=== PATIENT | female | born 1985 | race Caucasian/White ===

== ENCOUNTER 2016-06-12 09:58 | Emergency (ER) | payer MEDICAID ==
[2016-06-12 09:58] VITALS: BMI 43.2
[2016-06-12 10:11] VITALS: RESP 20
[2016-06-12] MEDS ORDERED: Sodium Chloride 0.9% 1,000 ML IV ONE (10:40)
[2016-06-12 10:41] VITALS: O2SAT 95
[2016-06-12] MEDS: Albuterol-Ipratrop 3 mg / 0.5 (3 ml) UD IH SCH ×2 (10:50→11:00)
[2016-06-12] MEDS ORDERED: Sodium Chloride 0.9% 1,000 ML ONE (10:52)
[2016-06-12] MEDS ORDERED: Albuterol-Ipratrop 3 mg / 0.5 (3 ml) UD ONE (10:54)
--- NOTE | 2016-06-12 10:56 | RAD ---
HISTORY: SOB COMPARISON: Chest x-ray performed 02/06/16 TECHNIQUE: Chest PA and lateral FINDINGS: Examination limited by habitus and hypoinflation. LUNGS: Bibasilar opacities may reflect pneumonia or atelectasis. Probable trace pleural effusions bilaterally. No definite pneumothorax. Please note that chest x-ray has limited sensitivity for the detection of pulmonary masses. CARDIOVASCULAR: The cardiomediastinal silhouette appears within normal limits of size. OSSEOUS STRUCTURES: No acute osseous abnormality identified. VISUALIZED UPPER ABDOMEN: Unremarkable. OTHER FINDINGS: None. IMPRESSION: Bibasilar opacities may reflect pneumonia or atelectasis. Probable trace pleural effusions bilaterally.
[2016-06-12 11:07] LABS: BASO # 0.1 K/uL (0.0-0.2); BASO % 0.7 % (0.0-2.0); EOS # 0.3 K/uL (0.0-0.7); EOS % 2.2 % (0.0-4.0); HEMATOCRIT 38.2 % (34.0-47.0); LYMPH % 31.6 % (20.0-40.0); MEAN CELL VOLUME 89.5 fL (81.0-99.0); MEAN CORPUSCULAR HEMOGLOBIN 29.5 pg (27.0-31.0); MEAN CORPUSCULAR HGB CONC 32.9 g/dL (33.0-37.0); MEAN PLATELET VOLUME 8.3 fL (7.2-11.7); MONO # 0.7 K/uL (0.0-0.8); MONO % 5.2 % (0.0-10.0); RED CELL DISTRIBUTION WIDTH 13.8 % (11.5-14.5); WHITE BLOOD COUNT 12.6 K/uL (4.8-10.8)
[2016-06-12 11:09] LABS: RBC URINE 4 /hpf (0-3); URINE BACTERIA RARE (<OCC); URINE BILIRUBIN NEGATIVE (NEGATIVE); URINE BLOOD 1+ (NEGATIVE); URINE COLOR Yellow (YELLOW); URINE GLUCOSE (UA) NORMAL (Normal); URINE KETONE NEGATIVE (NEGATIVE); URINE LEUKOCYTE ESTERASE NEG Leu/uL (Negative); URINE PROTEIN NEGATIVE (NEGATIVE); WBC URINE 1 /hpf (0-5)
[2016-06-12 11:14] LABS: CHLORIDE 103 mmol/L (98-107)
[2016-06-12 11:15] LABS: POTASSIUM 3.3 mmol/L (3.6-5.2); SODIUM 138 mmol/L (132-148)
[2016-06-12 11:17] LABS: AST/SGOT 23 U/L (14-36); BILIRUBIN,TOTAL 0.7 mg/dL (0.2-1.3); CARBON DIOXIDE 26 mmol/L (22-30); GFR AFRICAN-AMERICAN > 60
[2016-06-12 11:18] LABS: ALB/GLOB RATIO 1.1 (1.0-2.1); ALKALINE PHOSPHATASE 86 U/L (38-126); ALT/SGPT 32 U/L (9-52); BLOOD UREA NITROGEN 14 mg/dL (7-17); GLUCOSE,RANDOM 79 mg/dL (65-105); TOTAL PROTEIN 7.2 g/dL (6.3-8.3)
--- NOTE | 2016-06-12 11:19 | C.PDOC ---
History Of Present Illness 31 y/o female PMH COPD presents to the ED with complains of cough, midsternal chest pain, rib pain and SOB x3 days. Pt reports being sick for over a week, was seen by PMD given prednisone and unknown antibiotic which she completed. Patient continues to complain of cough. She also reports episode of post- tussive vomiting. Pt denies fever, nausea, dizziness or any other complaints. Time Seen by Provider: 06/12/16 10:35 Chief Complaint (Nursing): Chest Pain History Per: Patient History/Exam Limitations: no limitations Onset/Duration Of Symptoms: Days Current Symptoms Are (Timing): Still Present Severity: Moderate Modifying Factors: None Alleviating Factors: None Recent travel outside of the [place]: No Past Medical History Reviewed: Historical Data, Nursing Documentation, Vital Signs Vital Signs: Last Vital Signs Temp 98.3 F 06/12/16 12:29 Pulse 113 H 06/12/16 12:14 Resp 20 06/12/16 12:14 BP 122/73 06/12/16 12:14 Pulse Ox 95 06/12/16 12:14 - Medical History PMH: Anemia, Bronchitis, Diabetes, HTN, Pneumonia Surgical History: (x3) - [facility] Procedures EXCISION OF STOMACH, ENDO, DIAGN (02/06/16) FLUOROSCOPY OF LEFT HEART USING LOW OSMOLAR CONTRAST (02/06/16) FLUOROSCOPY OF MULT COR ART USING L OSM CONTRAST (02/06/16) MEASURE OF CARDIAC SAMPL & PRESSURE, L HEART, PERC APPROACH (02/06/16) Family History: States: Unknown Family Hx - Social History Hx Tobacco Use: Yes Hx Alcohol Use: Yes (SOCIALLY) Hx Substance Use: No - Immunization History Hx Tetanus Toxoid Vaccination: Yes Hx Influenza Vaccination: Yes (Oct 2015) Hx Pneumococcal Vaccination: No Review Of Systems Except As Marked, All Systems Reviewed And Found Negative. Constitutional: Negative for: Fever Cardiovascular: Positive for: Chest Pain (midsternal), Other (rib pain). Negative for: Palpitations Respiratory: Positive for: Cough, Shortness of Breath. Negative for: Pleuritic Pain, Wheezing Gastrointestinal: Positive for: Vomiting. Negative for: Nausea, Diarrhea Musculoskeletal: Negative for: Back Pain Skin: Negative for: Rash Neurological: Negative for: Headache, Dizziness Physical Exam - Physical Exam Appears: Non-toxic, No Acute Distress, Other (obese) Skin: Warm, Dry, No Diaphoretic, No Pale, No Rash Head: Atraumatic, Normacephalic Eye(s): bilateral: Normal Inspection, EOMI Ear(s): Bilateral: Normal (no erythema) Nose: Normal, No Flaring Oral Mucosa: Moist Throat: Normal, No Erythema, No Exudate, No Drooling, No Mass Neck: Normal, Normal ROM, Supple Chest: Symmetrical, No Deformity, No Tenderness Cardiovascular: Rhythm Regular, No Murmur Respiratory: Decreased Breath Sounds (at bases), No Rales, No Rhonchi, Wheezing (expiratory) Gastrointestinal/Abdominal: Normal Exam, Soft, No Tenderness Extremity: Bilateral: Atraumatic, Normal Color And Temperature, Normal ROM Neurological/Psych: Oriented x3, Normal Speech Gait: Steady ED Course And Treatment - Laboratory Results Result Diagrams: 06/12/16 11:01 06/12/16 11:01 Lab Interpretation: No Acute Changes ECG: Interpreted By Me, Viewed By Me ECG Rhythm: Sinus Tachycardia ECG Interpretation: No Acute Changes Rate From EC (BPM) O2 Sat by Pulse Oximetry: 95 (room air) Pulse Ox Interpretation: Normal Medical Decision Making Medical Decision Making: Plan: * EKG, CXR * labs * UA * nebulizer treatment Re-assess: Upon reevaluation patient resting comfortably in no acute distress. Lung sounds have improved and patient reports feeling better. No longer SOB. She has no fever and vital signs stable. CXR and labs reviewed and discussed with patient. Recommend to finish prednisone and continue nebulizers at home. will prescribe tessalon. Disposition Counseled Patient/Family Regarding: Diagnosis, Need For Followup, Rx Given - Disposition Referrals: [facility] [Outside] [facility] [Outside] Disposition: HOME/ ROUTINE Disposition Time: 12:10 Condition: STABLE Additional Instructions: Follow up with your primary medical doctor or clinic in 2-5 days for further evaluation. Take cough medicine as needed. Continue with nebulizers. Return to the emergency department at any time if symptoms persist or worsen. Prescriptions: Benzonatate [Tessalon Perles] 100 mg PO TID #30 sgl Instructions: COPD (Chronic Obstructive Pulmonary Disease) (DC) - POA Present On Arrival: None - Clinical Impression Clinical Impression: Pleuritic pain, COPD (chronic obstructive pulmonary disease) - PA / [employer] AND WELLNESS DIRECTOR / Resident Statement / has reviewed & agrees with the documentation as recorded. - Scribe Statement The provider has reviewed the documentation as recorded by the Scribe Dat Garcia All medical record entries made by the Fabioibgay were at my direction and personally dictated by me. I have reviewed the chart and agree that the record accurately reflects my personal performance of the history, physical exam, medical decision making, and the department course for this patient. I have also personally directed, reviewed, and agree with the discharge instructions and disposition.
[2016-06-12 12:15] VITALS: BP 122/73; PULSE 113
[2016-06-12 12:29] VITALS: TEMP 98.3
--- NOTE | 2016-06-18 07:48 | CARD ---
APPROVED REPORT EKG Measurement Heart [id number] <Conclusion> Sinus tachycardia ST & T wave abnormality, consider inferior ischemia Abnormal ECG
== END 2016-06-12 12:41 | disposition home or self-care (01) ==
LOC: C.ER 09:58
DX: J44.9 Chronic obstructive pulmonary disease, unspecified (principal); R07.81 Pleurodynia
CPT/HCPCS: 71020; 80053; 81001; 82948; 83880; 84703; 85025; 93005; 94150; 94640; 96361; 96374; 99285; J2930; J7040

== ENCOUNTER 2017-05-29 09:14 | Inpatient (IN) | payer MEDICAID ==
[2017-05-29 09:14] VITALS: BMI 43.2
[2017-05-29] MEDS ORDERED: Sodium Chloride 0.9% 500 ML IV ONE ×2 (10:06→10:50)
--- NOTE | 2017-05-29 10:38 | RAD ---
HISTORY: SOB, COUGH COMPARISON: Chest x-ray 06/12/2016 TECHNIQUE: Chest PA and lateral FINDINGS: LUNGS: No focal consolidation is seen. Mild Bibasilar atelectasis. PLEURA: No pleural effusion is identified. CARDIOVASCULAR: Heart size is within normal limits. OSSEOUS STRUCTURES: No significant abnormalities. VISUALIZED UPPER ABDOMEN: Unremarkable. OTHER FINDINGS: None. IMPRESSION: Mild bibasilar atelectasis.
[2017-05-29 10:49] LABS: BASO # 0.1 K/uL (0.0-0.2); BASO % 0.8 % (0.0-2.0); EOS # 0.1 K/uL (0.0-0.7); EOS % 0.7 % (0.0-4.0); HEMOGLOBIN 13.5 g/dL (11.0-16.0); LYMPH # 2.1 K/uL (1.0-4.3); LYMPH % 23.2 % (20.0-40.0); MEAN CELL VOLUME 91.9 fL (81.0-99.0); MEAN CORPUSCULAR HEMOGLOBIN 31.2 pg (27.0-31.0); MONO # 0.5 K/uL (0.0-0.8); MONO % 5.7 % (0.0-10.0); NEUT # 6.3 K/uL (1.8-7.0); NEUT % 69.6 % (50.0-75.0); RBC 4.34 Mil/uL (3.80-5.20); RED CELL DISTRIBUTION WIDTH 13.8 % (11.5-14.5)
--- NOTE | 2017-05-29 11:03 | C.PDOC ---
History Of Present Illness 32 y/o female presents to the ER complaining of persistent nausea and vomiting which has been present for the past 1 month. Patient states that she also has decreased PO intake. She also complains of persistent productive cough which has been present for the past 2 months. She notes that she has used 2 different antibiotics, and is currently taking Bactrim given to her by her PMD. Patient has h/o cryptogenic organizing pneumonia on 2L O2. She admits to having SOB. Patient deneis fever/chills, chest pain, diarrhea, dysuria/hematuria. Time Seen by Provider: 05/29/17 09:39 Chief Complaint (Nursing): Chest Pain History Per: Patient History/Exam Limitations: no limitations Onset/Duration Of Symptoms: Days Current Symptoms Are (Timing): Still Present Severity: Moderate Past Medical History Reviewed: Historical Data, Nursing Documentation, Vital Signs Vital Signs: Last Vital Signs Temp 98.1 F 06/03/17 08:00 Pulse 101 H 06/03/17 08:00 Resp 20 06/03/17 08:00 BP 107/71 06/03/17 08:00 Pulse Ox 92 L 06/05/17 18:35 - Medical History PMH: Anemia, Bronchitis, Diabetes, HTN, Pneumonia Surgical History: No Surg Hx, (x3) - [facility] Procedures EXCISION OF STOMACH, ENDO, DIAGN (02/06/16) FLUOROSCOPY OF LEFT HEART USING LOW OSMOLAR CONTRAST (02/06/16) FLUOROSCOPY OF MULT COR ART USING L OSM CONTRAST (02/06/16) MEASURE OF CARDIAC SAMPL & PRESSURE, L HEART, PERC APPROACH (02/06/16) Family History: States: No Known Family Hx - Social History Hx Tobacco Use: Yes Hx Alcohol Use: Yes (SOCIALLY) Hx Substance Use: No - Immunization History Hx Tetanus Toxoid Vaccination: Yes Hx Influenza Vaccination: Yes (Oct 2015) Hx Pneumococcal Vaccination: No Review Of Systems Except As Marked, All Systems Reviewed And Found Negative. Constitutional: Negative for: Fever, Chills Cardiovascular: Negative for: Chest Pain Respiratory: Positive for: Cough, Shortness of Breath Gastrointestinal: Positive for: Nausea, Vomiting. Negative for: Abdominal Pain , Diarrhea Genitourinary: Negative for: Dysuria Skin: Negative for: Rash Physical Exam - Physical Exam Appears: Well, Non-toxic, Other (mildly uncomfortable, speaking in full sentences) Skin: Normal Color, Warm, Dry, No Rash Head: Normacephalic Eye(s): bilateral: Normal Inspection Nose: Other (nasal cannula in bilateral nares) Oral Mucosa: Moist Neck: Supple Chest: Symmetrical Cardiovascular: Rhythm Regular (mildly tachycardic ) Respiratory: Normal Breath Sounds, No Rales, No Rhonchi, No Wheezing Gastrointestinal/Abdominal: Bowel Sounds, Soft, Tenderness (mild epigastric tenderness to palpation ), No Guarding, No Rebound, Other ((-)Peres's, ( -) McBurney's) Back: Normal Inspection, No CVA Tenderness Neurological/Psych: Oriented x3 ED Course And Treatment - Laboratory Results Result Diagrams: 06/03/17 10:53 06/03/17 10:53 O2 Sat by Pulse Oximetry: 92 (RA) Pulse Ox Interpretation: Abnormal - Other Rad CXR X-Ray: Viewed By Me, Read By Radiologist Interpretation: HISTORY: SOB, COUGH. COMPARISON: Chest x-ray 06/12/2016. TECHNIQUE: Chest PA and lateral. FINDINGS: LUNGS: No focal consolidation is seen. Mild Bibasilar atelectasis. PLEURA: No pleural effusion is identified. CARDIOVASCULAR: Heart size is within normal limits. OSSEOUS STRUCTURES: No significant abnormalities. VISUALIZED UPPER ABDOMEN: Unremarkable. OTHER FINDINGS: None. IMPRESSION: Mild bibasilar atelectasis. Progress Note: Blood work, UA, and CXR ordered and reviewed. Patient given IV NS bolus, O2 by NC, IV pepcid, IV zofran, IV morphine. 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 Disposition - Disposition Disposition: HOSPITALIZED Disposition Time: 13:29 Condition: STABLE - Clinical Impression Clinical Impression: Cryptogenic organizing pneumonia, Elevated CK, Rhabdomyolysis, Cough, Nausea & vomiting - Scribe Statement The provider has reviewed the documentation as recorded by the Alyssa Brownlee Provider Attestation: All medical record entries made by the Scribe were at my direction and personally dictated by me. I have reviewed the chart and agree that the record accurately reflects my personal performance of the history, physical exam, medical decision making, and the department course for this patient. I have also personally directed, reviewed, and agree with the discharge instructions and disposition. Decision To Admit - Pt Status Changed To: Hospital Disposition Of: Inpatient - Admit Certification Admit to Inpatient:: After my assessment, the patient will require hospitalization for at least two midnights. This is because of the severity of symptoms shown, intensity of services needed, and/or the medical risk in this patient being treated as an outpatient. - InPatient: Physician Admission Certification: I certify that this patient requires 2 or more midnights of care for the following reason:: see notes - . Bed Request Type: Telemetry Admitting Physician: Alondra Lyles Patient Diagnosis: Cryptogenic organizing pneumonia, Elevated CK, Rhabdomyolysis, Cough, Nausea & vomiting
[2017-05-29 11:09] LABS: HCG,QUALITATIVE URINE NEGATIVE (NEGATIVE)
[2017-05-29 11:20] LABS: ALB/GLOB RATIO 0.8 (1.0-2.1); ALT/SGPT 83 U/L (9-52); AST/SGOT 91 U/L (14-36); BLOOD UREA NITROGEN 9 mg/dL (7-17); CALCIUM 9.1 mg/dl (8.6-10.4); GFR AFRICAN-AMERICAN > 60; GFR NON-AFRICAN AMERICAN > 60; LIPASE 126 U/L (23-300)
[2017-05-29 11:25] LABS: CK-MB 23.3 ng/mL (0.0-3.38)
[2017-05-29 11:31] LABS: URINE CLARITY Hazy (Clear); URINE COLOR YELLOW (YELLOW)
[2017-05-29 11:32] LABS: URINE BILIRUBIN SMALL (NEGATIVE); URINE GLUCOSE (UA) NEGATIVE (Normal)
[2017-05-29 11:33] LABS: SQUAMOUS EPITHIAL 1 /hpf (0-5); URINE BLOOD LARGE (NEGATIVE); URINE LEUKOCYTE ESTERASE NEGATIVE Leu/uL (Negative); URINE PROTEIN 30 mg/dL (NEGATIVE); URINE UROBILINOGEN 0.2 mg/dL (0.2-1.0)
[2017-05-29 11:34] LABS: URINE BACTERIA RARE (<OCC)
[2017-05-29 15:08] VITALS: RESP 20
[2017-05-29 15:11] LABS: BARBITURATES, UR NEGATIVE (NEGATIVE); BENZODIAZEPINES, UR NEGATIVE (NEGATIVE); OPIATES, UR NEGATIVE (NEGATIVE); PHENCYCLIDINE, UR NEGATIVE (NEGATIVE)
[2017-05-29] MEDS ORDERED: Morphine 4 MG/ML VIAL ONE (17:28)
[2017-05-29] MEDS: MethylPREDNISolone 40 mg Vial IVP SCH ×2 (17:34→22:41)
[2017-05-29] MEDS ORDERED: Albuterol HFA 90 mcg/actuation (8 g) INH PRN (21:13)
[2017-05-29] MEDS: (Novolin R) Insulin Human Regular 100 units/ml vial SC SCH (22:42)
[2017-05-29] MEDS: Sodium Chloride 0.9% 1,000 ML IV SCH (22:47)
[2017-05-30] MEDS: Albuterol-Ipratrop 3 mg / 0.5 (3 ml) UD INH SCH ×4 (03:07→19:49)
[2017-05-30] MEDS: MethylPREDNISolone 40 mg Vial IVP SCH ×4 (05:29→21:48)
--- NOTE | 2017-05-30 07:21 | HP ---
CHIEF COMPLAINT: Chest pain, nausea, vomiting, and diarrhea. HISTORY OF PRESENT ILLNESS: Mrs. Caity Mast is a 32-year-old female came to the emergency room, complaining of persistent nausea and vomiting which has been present for past one month. The patient states that she has decreased p.o. intake. No appetite. The patient is also complaining of persistent productive cough which has been present for at least past two months. She noticed that she has been using two different antibiotics, and she is currently taking Bactrim provided by her PMD, and she has a history of COPD, and she is currently using 2 L of home oxygen. The patient admits to have shortness of breath. The patient denies any fever, chills, hematuria, or hematochezia. I saw the patient in the emergency room. Her boyfriend was sitting on the bedside also. PAST MEDICAL HISTORY: Anemia, bronchitis, asthma, hypertension, and pneumonia. SURGICAL HISTORY: x3. HABITS: Tobacco, yes. Alcohol, socially. Substance abuse, no. ALLERGIES: THE PATIENT IS ALLERGIC WITH SEAFOOD. HOME MEDICATIONS: Reviewed by me. REVIEW OF SYSTEMS: The patient seen and examined at the bedside in the ER. was sitting on the bedside also. Still nauseous and having abdominal pain, back pain. No fever at this moment. Still coughing, having shortness of breath. No hematuria or hematochezia. No swelling of the leg. PHYSICAL EXAMINATION: VITAL SIGNS: Temperature 97.6, pulse 111, respiratory rate 19, blood pressure 120/84, pulse oxymetry is 92. HEENT: Head: Normocephalic, atraumatic. Eyes: PERRLA. Extraocular muscles intact. Conjunctivae clear. Nose patent. NECK: Supple. No carotid bruits, JVD, or thyromegaly. CHEST: Bilaterally symmetrical. HEART: S1 and S2 positive. LUNGS: Clear to auscultation. ABDOMEN: Soft. Bowel sounds positive. No organomegaly. EXTREMITIES: No edema, no cyanosis. NEUROLOGIC: The patient is awake, alert, moving all 4 extremities. No focal deficits. LABORATORY DATA: White blood cell 9, hemoglobin 13.5, hematocrit 39.9, platelets 375. Sodium 139, potassium 4.1, BUN 9, creatinine 0.6, glucose 174. AST 93, ALT 83. Total creatine kinase 1175. CK is 23.3. Toxicology positive for cannabinoid. ASSESSMENT AND PLAN: Ms. Caity Mast is a 32-year-old lady with hyperglycemia, abnormal liver function test, rule out rhabdomyolysis. Urine is clear. Cannabinoid screening is positive. Chest x-ray done, mild bibasilar atelectasis. Obesity, history of anemia, bronchitis , diabetes mellitus, hypertension, and pneumonia. Rule out gastroenteritis. Got oxygen with 2 L nasal cannula. We will call pulmonary consult. Gastrointestinal and deep vein thrombosis prophylaxis. Repeat labs. We will follow. Alondra Lyles MD
--- NOTE | 2017-05-30 07:36 | CP.PCM.CON ---
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 In the last 3 weeks she again developed worsening productive cough and required two separate courses of antibiotics ( Azithromycin followed by Bactrim). As a result of coughing, she developed some lower rib/chest pain. In the last 1-2 weeks she has had episodes of epigastric, burning abdominal pain accompanied by nausea and vomiting. Symptoms have worsened to the point where she was not able to keep any food down. Admits to frequent Excedrin use for migraines. Also has muscle aches/weakness, intermittent shaking chills. No other OTC medications. Denies any weight loss, hematochezia, melena. 12 system ROS performed and negative except where stated above. 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) - NEUROLOGICAL Hx Neurological Disorder: No - HEENT Hx HEENT Problems: Yes Other/Comment: wear glasses for astigmatism - RENAL Hx Chronic Kidney Disease: No - ENDOCRINE/METABOLIC Hx Diabetes Mellitus Type 2: Yes - HEMATOLOGICAL/ONCOLOGICAL Hx Anemia: Yes Hx Hepatitis C: No Hx Human Immunodeficiency Virus (HIV): No - INTEGUMENTARY Hx Dermatological Problems: No - MUSCULOSKELETAL/RHEUMATOLOGICAL Hx Musculoskeletal Disorders: No Hx Falls: No - GASTROINTESTINAL Hx Gastrointestinal Disorders: Yes Hx Diarrhea: Yes - GENITOURINARY/GYNECOLOGICAL Hx Genitourinary Disorders: No Hx Sexually Transmitted Disorders: No - PSYCHIATRIC Hx Psychophysiologic Disorder: No Hx Substance Use: No - SURGICAL HISTORY Hx Surgeries: Yes Hx Cardiac Catheterization: Yes Hx Section: Yes (x3) Other/Comment: left ovary removed 2006. Lung biposy (03/2015) - ANESTHESIA Hx Anesthesia: Yes Hx Anesthesia Reactions: No Hx Malignant Hyperthermia: No Meds Allergies/Adverse Reactions: Allergies Allergy/AdvReac Type Severity Reaction Status Date / Time seasonal Allergy Uncoded 05/29/17 10:45 - Medications Medications: Current Medications Acetaminophen (Tylenol 325mg Tab) 650 mg PO TID PRN PRN Reason: Pain, moderate (4-7) Last Admin: 05/29/17 22:39 Dose: 650 mg Albuterol (Ventolin Hfa 90 Mcg/Actuation (8 G)) 2 puff INH RQ4 PRN PRN Reason: Shortness of Breath Albuterol/Ipratropium (Duoneb 3 Mg/0.5 Mg (3 Ml) Ud) 3 ml INH RQ6 [facility] Last Admin: 05/30/17 03:07 Dose: 3 ml Benzonatate (Tessalon Perles) 100 mg PO TID [facility] Sodium Chloride (Sodium Chloride 0.9%) 1,000 mls @ 100 mls/hr IV .Q10H [facility] Last Admin: 05/29/17 22:47 Dose: 100 mls/hr Insulin Human Regular (Novolin R) 0 unit SC ACHS [facility] PRN Reason: Protocol Last Admin: 05/29/17 22:42 Dose: Not Given Methylprednisolone (Solu-Medrol) 40 mg IVP Q6H [facility] Last Admin: 05/30/17 05:29 Dose: 40 mg Montelukast Sodium (Singulair) 10 mg PO HS [facility] Last Admin: 05/29/17 22:42 Dose: 10 mg Ondansetron HCl (Zofran Odt) 4 mg PO Q6H PRN PRN Reason: Nausea/Vomiting Pantoprazole Sodium (Protonix Ec Tab) 40 mg PO DAILY [facility] Fluticasone/Salmeterol (Advair Diskus 500/50) 1 puff INH RQ12 [facility] Physical Exam - Constitutional Appears: Non-toxic, No Acute Distress, Other (obese) - Eye Exam Eye Exam: EOMI, PERRL - ENT Exam ENT Exam: Mucous Membranes Moist - Respiratory Exam Respiratory Exam: Clear to Auscultation Bilateral. absent: Rales, Rhonchi, Wheezes - Cardiovascular Exam Cardiovascular Exam: RRR, +S1, +S2 - GI/Abdominal Exam GI & Abdominal Exam: Normal Bowel Sounds, Soft, Tenderness (epigastric). absent : Distended, Firm, Guarding, Organomegaly, Rigid - Extremities Exam Extremities exam: Positive for: normal inspection, pedal edema (1+ B/L) - Neurological Exam Neurological exam: Alert, Oriented x3 - Psychiatric Exam Psychiatric exam: Normal Affect, Normal Mood - Skin Skin Exam: Dry, Warm Results - Vital Signs Recent Vital Signs: Last Vital Signs Temp 97.8 F 05/30/17 00:00 Pulse 74 05/30/17 00:00 Resp 20 05/30/17 00:00 BP 107/69 05/30/17 00:00 Pulse Ox 98 05/30/17 00:00 - Labs Result Diagrams: 05/30/17 08:45 05/30/17 08:45 Labs: Laboratory Results - last 24 hr 05/29/17 05/29/17 05/29/17 10:41 10:41 10:57 WBC 9.0 RBC 4.34 Hgb 13.5 Hct 39.9 MCV 91.9 D MCH 31.2 H MCHC 34.0 RDW 13.8 Plt Count 375 MPV 8.0 Neut % (Auto) 69.6 Lymph % (Auto) 23.2 Dale % (Auto) 5.7 Eos % (Auto) 0.7 Baso % (Auto) 0.8 Neut # (Auto) 6.3 Lymph # (Auto) 2.1 Dale # (Auto) 0.5 Eos # (Auto) 0.1 Baso # (Auto) 0.1 Sodium 139 Potassium 4.1 Chloride 103 Carbon Dioxide 21 L Anion Gap 19 BUN 9 Creatinine 0.6 L Est GFR ( Amer) > 60 Est GFR (Non-Af Amer) > 60 POC Glucose (mg/dL) Random Glucose 92 Calcium 9.1 Total Bilirubin 0.8 AST 91 H ALT 83 H D Alkaline Phosphatase 110 Total Creatine Kinase 1175 H CK-MB (Mass) 23.3 H Troponin I < 0.0120 Total Protein 8.9 H Albumin 4.0 Globulin 4.9 H Albumin/Globulin Ratio 0.8 L Lipase 126 Urine Color Yellow Urine Clarity Hazy Urine pH 6.0 Ur Specific [place] 1.025 Urine Protein 30 Urine Glucose (UA) Negative Urine Ketones Negative Urine Blood Large Urine Nitrate Negative Urine Bilirubin Small Urine Urobilinogen 0.2 Ur Leukocyte Esterase Negative Urine WBC (Auto) 2 Urine RBC (Auto) 8 H Ur Squamous Epith Cells 1 Urine Bacteria Rare Urine HCG, Qual Negative Urine Opiates Screen Urine Methadone Screen Ur Barbiturates Screen Ur Phencyclidine Scrn Ur Amphetamines Screen U Benzodiazepines Scrn U Oth Cocaine Metabols U Cannabinoids Screen Alcohol, Quantitative 05/29/17 05/29/17 05/29/17 14:39 14:45 21:20 WBC RBC Hgb Hct MCV MCH MCHC RDW Plt Count MPV Neut % (Auto) Lymph % (Auto) Dale % (Auto) Eos % (Auto) Baso % (Auto) Neut # (Auto) Lymph # (Auto) Dale # (Auto) Eos # (Auto) Baso # (Auto) Sodium Potassium Chloride Carbon Dioxide Anion Gap BUN Creatinine Est GFR ( Amer) Est GFR (Non-Af Amer) POC Glucose (mg/dL) 179 H Random Glucose Calcium Total Bilirubin AST ALT Alkaline Phosphatase Total Creatine Kinase CK-MB (Mass) Troponin I Total Protein Albumin Globulin Albumin/Globulin Ratio Lipase Urine Color Urine Clarity Urine pH Ur Specific [place] Urine Protein Urine Glucose (UA) Urine Ketones Urine Blood Urine Nitrate Urine Bilirubin Urine Urobilinogen Ur Leukocyte Esterase Urine WBC (Auto) Urine RBC (Auto) Ur Squamous Epith Cells Urine Bacteria Urine HCG, Qual Urine Opiates Screen Negative Urine Methadone Screen Negative Ur Barbiturates Screen Negative Ur Phencyclidine Scrn Negative Ur Amphetamines Screen Negative U Benzodiazepines Scrn Negative U Oth Cocaine Metabols Negative U Cannabinoids Screen Positive H Alcohol, Quantitative < 10 Assessment & Plan - Assessment and Plan (Free Text) Assessment: Patient is a 32yo female with PMHx significant for DMT2, 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 organizing pneumonia (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), asthma who presented yesterday with complaint of chest and abdominal pain along with nausea/vomiting -Abdominal pain, nausea, vomiting - resolved -Elevated LFTs -DMT2 -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 -Elevated CK Plan: -Recommend initiation of PPI therapy with Protonix 40mg PO QAMAC given ongoing use of steroids and h/o heavy NSAID use -Avoid NSAIDs where possible -Check hepatitis serologies -Autoimmune work up - SARAH, AMA, ASMA, IgG level -U/S abdomen reviewed - no evidence for biliary disease - suspect hepatic steatosis; encourage diet/weight loss/exercise -Consider rheumatologic evaluation - R/O polymyositis given muscle weakness/ fatigue/elevated CK in absence of other causes -Diet as tolerated - Date & Time Date: 05/30/17 Time: 06:30 <Nicolas Diego - Last Filed: 05/30/17 13:09> Meds - Medications Medications: Current Medications Acetaminophen (Tylenol 325mg Tab) 650 mg PO TID PRN PRN Reason: Pain, moderate (4-7) Last Admin: 05/30/17 12:35 Dose: 650 mg Albuterol (Ventolin Hfa 90 Mcg/Actuation (8 G)) 2 puff INH RQ4 PRN PRN Reason: Shortness of Breath Albuterol/Ipratropium (Duoneb 3 Mg/0.5 Mg (3 Ml) Ud) 3 ml INH RQ6 [facility] Last Admin: 05/30/17 07:30 Dose: 3 ml Benzonatate (Tessalon Perles) 100 mg PO TID [facility] Last Admin: 05/30/17 09:59 Dose: 100 mg Heparin Sodium (Porcine) (Heparin) 5,000 units SC Q12 [facility] Last Admin: 05/30/17 10:22 Dose: Not Given Sodium Chloride (Sodium Chloride 0.9%) 1,000 mls @ 100 mls/hr IV .Q10H [facility] Last Admin: 05/30/17 08:45 Dose: 100 mls/hr Insulin Human Regular (Novolin R) 0 unit SC ACHS [facility] PRN Reason: Protocol Last Admin: 05/30/17 12:00 Dose: 1 unit Methylprednisolone (Solu-Medrol) 40 mg IVP Q6H [facility] Last Admin: 05/30/17 10:00 Dose: 40 mg Montelukast Sodium (Singulair) 10 mg PO HS [facility] Last Admin: 05/29/17 22:42 Dose: 10 mg Ondansetron HCl (Zofran Odt) 4 mg PO Q6H PRN PRN Reason: Nausea/Vomiting Pantoprazole Sodium (Protonix Ec Tab) 40 mg PO DAILY [facility] Last Admin: 05/30/17 09:57 Dose: 40 mg Fluticasone/Salmeterol (Advair Diskus 500/50) 1 puff INH RQ12 [facility] Last Admin: 05/30/17 10:33 Dose: Not Given Results - Vital Signs Recent Vital Signs: Last Vital Signs Temp 98.0 F 05/30/17 07:38 Pulse 98 H 05/30/17 07:38 Resp 20 05/30/17 07:38 BP 108/68 05/30/17 07:38 Pulse Ox 96 05/30/17 07:38 - Labs Result Diagrams: 05/30/17 08:45 05/30/17 11:41 Labs: Laboratory Results - last 24 hr 05/29/17 05/29/17 05/29/17 14:39 14:45 21:20 WBC RBC Hgb Hct MCV MCH MCHC RDW Plt Count MPV Sodium Potassium Chloride Carbon Dioxide Anion Gap BUN Creatinine Est GFR ( Amer) Est GFR (Non-Af Amer) POC Glucose (mg/dL) 179 H Random Glucose Hemoglobin A1c Calcium Iron TIBC % Saturation Total Bilirubin AST ALT Alkaline Phosphatase Total Creatine Kinase Total Protein Albumin Globulin Albumin/Globulin Ratio Triglycerides Cholesterol LDL Cholesterol Direct HDL Cholesterol Vitamin B12 Folate TSH 3rd Generation Urine Opiates Screen Negative Urine Methadone Screen Negative Ur Barbiturates Screen Negative Ur Phencyclidine Scrn Negative Ur Amphetamines Screen Negative U Benzodiazepines Scrn Negative U Oth Cocaine Metabols Negative U Cannabinoids Screen Positive H Alcohol, Quantitative < 10 IgG Hepatitis A IgM Ab Hep Bs Antigen Hep B Core IgM Ab Hepatitis C Antibody 05/30/17 05/30/17 05/30/17 06:59 08:45 08:45 WBC RBC Hgb Hct MCV MCH MCHC RDW Plt Count MPV Sodium Potassium Chloride Carbon Dioxide Anion Gap BUN Creatinine 0.5 L Est GFR ( Amer) > 60 Est GFR (Non-Af Amer) > 60 POC Glucose (mg/dL) 153 H Random Glucose Hemoglobin A1c Calcium Iron 47 TIBC 395 % Saturation 12 L Total Bilirubin AST ALT Alkaline Phosphatase Total Creatine Kinase 770 H Total Protein Albumin Globulin Albumin/Globulin Ratio Triglycerides 184 H Cholesterol 164 LDL Cholesterol Direct 107 HDL Cholesterol 25 L Vitamin B12 379 Folate 16.8 TSH 3rd Generation Urine Opiates Screen Urine Methadone Screen Ur Barbiturates Screen Ur Phencyclidine Scrn Ur Amphetamines Screen U Benzodiazepines Scrn U Oth Cocaine Metabols U Cannabinoids Screen Alcohol, Quantitative IgG Hepatitis A IgM Ab Hep Bs Antigen Hep B Core IgM Ab Hepatitis C Antibody 05/30/17 05/30/17 05/30/17 08:45 08:45 08:45 WBC 5.8 RBC 4.04 Hgb 12.9 Hct 37.5 MCV 92.7 MCH 31.9 H MCHC 34.4 RDW 13.4 Plt Count 350 MPV 8.2 Sodium 140 Potassium 4.2 Chloride 103 Carbon Dioxide 21 L Anion Gap 20 BUN 9 Creatinine 0.5 L Est GFR ( Amer) > 60 Est GFR (Non-Af Amer) > 60 POC Glucose (mg/dL) Random Glucose 161 H Hemoglobin A1c 6.4 Calcium 8.9 Iron TIBC % Saturation Total Bilirubin AST ALT Alkaline Phosphatase Total Creatine Kinase Total Protein Albumin Globulin Albumin/Globulin Ratio Triglycerides Cholesterol LDL Cholesterol Direct HDL Cholesterol Vitamin B12 Folate TSH 3rd Generation 0.35 L Urine Opiates Screen Urine Methadone Screen Ur Barbiturates Screen Ur Phencyclidine Scrn Ur Amphetamines Screen U Benzodiazepines Scrn U Oth Cocaine Metabols U Cannabinoids Screen Alcohol, Quantitative IgG Hepatitis A IgM Ab Hep Bs Antigen Hep B Core IgM Ab Hepatitis C Antibody 05/30/17 05/30/17 05/30/17 08:45 11:21 11:41 WBC RBC Hgb Hct MCV MCH MCHC RDW Plt Count MPV Sodium 141 Potassium 3.9 Chloride 103 Carbon Dioxide 17 L Anion Gap 24 H BUN 8 Creatinine 0.5 L Est GFR ( Amer) > 60 Est GFR (Non-Af Amer) > 60 POC Glucose (mg/dL) 159 H Random Glucose 168 H Hemoglobin A1c Calcium 9.2 Iron TIBC % Saturation Total Bilirubin 0.5 AST 71 H D ALT 81 H Alkaline Phosphatase 103 Total Creatine Kinase 829 H Total Protein 8.9 H Albumin 4.1 Globulin 4.8 H Albumin/Globulin Ratio 0.9 L Triglycerides Cholesterol LDL Cholesterol Direct HDL Cholesterol Vitamin B12 Folate TSH 3rd Generation Urine Opiates Screen Urine Methadone Screen Ur Barbiturates Screen Ur Phencyclidine Scrn Ur Amphetamines Screen U Benzodiazepines Scrn U Oth Cocaine Metabols U Cannabinoids Screen Alcohol, Quantitative IgG Hepatitis A IgM Ab Negative Hep Bs Antigen Negative Hep B Core IgM Ab Negative Hepatitis C Antibody Negative 05/30/17 11:51 WBC RBC Hgb Hct MCV MCH MCHC RDW Plt Count MPV Sodium Potassium Chloride Carbon Dioxide Anion Gap BUN Creatinine Est GFR ( Amer) Est GFR (Non-Af Amer) POC Glucose (mg/dL) Random Glucose Hemoglobin A1c Calcium Iron TIBC % Saturation Total Bilirubin AST ALT Alkaline Phosphatase Total Creatine Kinase Total Protein Albumin Globulin Albumin/Globulin Ratio Triglycerides Cholesterol LDL Cholesterol Direct HDL Cholesterol Vitamin B12 Folate TSH 3rd Generation Urine Opiates Screen Urine Methadone Screen Ur Barbiturates Screen Ur Phencyclidine Scrn Ur Amphetamines Screen U Benzodiazepines Scrn U Oth Cocaine Metabols U Cannabinoids Screen Alcohol, Quantitative IgG 1886.0 H Hepatitis A IgM Ab Hep Bs Antigen Hep B Core IgM Ab Hepatitis C Antibody Attending/Attestation - Attestation I have personally seen and examined this patient.: Yes I have fully participated in the care of the patient.: Yes I have reviewed all pertinent clinical information: Yes Notes (Text): 05/30/17 13:08 32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 US negative for gallstones, likely fatty infiltration. Send lft workup. Anti-emetics/ppi as needed. If persistent vomiting, then CT abdomen. Advance diet for now
[2017-05-30] MEDS: (Novolin R) Insulin Human Regular 100 units/ml vial SC SCH ×4 (08:00→22:51)
[2017-05-30] MEDS: Sodium Chloride 0.9% 1,000 ML IV SCH ×2 (08:45→17:43)
[2017-05-30 09:01] LABS: HEMOGLOBIN 12.9 g/dL (11.0-16.0); MEAN CELL VOLUME 92.7 fL (81.0-99.0); MEAN CORPUSCULAR HEMOGLOBIN 31.9 pg (27.0-31.0); MEAN CORPUSCULAR HGB CONC 34.4 g/dL (33.0-37.0); MEAN PLATELET VOLUME 8.2 fL (7.2-11.7); RBC 4.04 Mil/uL (3.80-5.20); RED CELL DISTRIBUTION WIDTH 13.4 % (11.5-14.5); WHITE BLOOD COUNT 5.8 K/uL (4.8-10.8)
[2017-05-30 09:16] LABS: BLOOD UREA NITROGEN 9 mg/dL (7-17); CALCIUM 8.9 mg/dl (8.6-10.4); GFR AFRICAN-AMERICAN > 60; GFR NON-AFRICAN AMERICAN > 60
[2017-05-30 09:28] LABS: IRON 47 ug/dL (37-170)
[2017-05-30 09:29] LABS: GFR AFRICAN-AMERICAN > 60; GFR NON-AFRICAN AMERICAN > 60; HDL CHOLESTEROL 25 mg/dL (30-70)
[2017-05-30 09:38] LABS: % IRON SATURATION 12 (20-55); TOTAL IRON BINDING CAPACITY 395 ug/dL (250-450)
--- NOTE | 2017-05-30 09:39 | US ---
Abdominal ultrasound History: Abnormal liver enzymes. Comparison: Ultrasound dated 02/08/2016 Technique: Real-time sonography was performed through the abdomen. Findings: Liver: 19.1 centimeters in length. Prominent. Increased echogenicity of the hepatic parenchymal cortex suggestive for fatty infiltration versus hepatic parenchymal disease. Clinical correlation. Gallbladder: No calculi or sludge. Normal wall thickness of 1.5 millimeters. Negative sonographic Peres's. Common bile duct measures 3 millimeters, within normal limits. Limited visualization of the pancreas. Spleen measures 10 centimeters in length, within normal limits. Visualized aorta and IVC are preserved. Right kidney: 11.1 x 4.8 x 5.2 centimeters. No calculi or hydronephrosis. Left Kidney: 10.9 x 5.6 x 5.6 centimeters. No calculi or hydronephrosis. Impression: Prominent liver measuring up to 19.1 centimeters in length with associated increased echogenicity of the hepatic parenchymal cortex suggestive for fatty infiltration versus hepatic parenchymal disease. Clinical correlation. Limited visualization of the pancreas.
[2017-05-30 09:40] LABS: LDL CHOLESTEROL 107 mg/dL (0-129)
[2017-05-30] MEDS: Pantoprazole 40 mg EC Tab PO SCH (09:57)
[2017-05-30 10:04] LABS: HEPATITIS B SURFACE AG Negative (NEGATIVE)
[2017-05-30 10:10] LABS: HEPATITIS A IGM NEGATIVE (NEGATIVE); HEPATITIS B CORE AB NEGATIVE (NEGATIVE)
[2017-05-30 10:22] LABS: HEPATITIS C ANTIBODY NEGATIVE (NEGATIVE)
[2017-05-30] MEDS: Fluticasone-Salmeterol 500-50mcg Diskus INH SCH ×2 (10:33→19:51)
[2017-05-30 10:56] LABS: FOLATE 16.8 ng/mL
--- NOTE | 2017-05-30 11:46 | CT ---
PROCEDURE: CT Chest without contrast HISTORY: sob, rabdomyelosis COMPARISON: 01/24/2016 TECHNIQUE: Contiguous axial images were obtained through the chest without intravenous contrast enhancement. Sagittal and coronal reconstructions were performed. Radiation dose (DLP): 875.08 mGy-cm. This CT exam was performed using one or more of the following dose reduction techniques: Automated exposure control, adjustment of the mA and/or kV according to patient size, and/or use of iterative reconstruction technique. FINDINGS: LUNGS: Extensive heterogeneous bilateral multifocal ground-glass opacity with patchy areas of confluency at the lung bases as well. Nonspecific. This may be infectious in etiology or may reflect pulmonary edema, chronic interstitial disease, ARDS, etc. MEDIASTINUM: Unremarkable thoracic aorta. No aneurysm. Normal sized heart. Main pulmonary artery unremarkable. No vascular congestion. Few mildly enlarged mediastinal nodes, nonspecific. PLEURA: No pleural fluid. No pneumothorax. BONES: No fracture. No destructive lesion. UPPER ABDOMEN: Grossly unremarkable. OTHER FINDINGS: None. IMPRESSION: Extensive heterogeneous bilateral ground-glass opacity common nonspecific. See above. Patchy areas of robinson confluency at the lung bases. .
[2017-05-30 12:18] LABS: ALB/GLOB RATIO 0.9 (1.0-2.1); ALBUMIN 4.1 g/dL (3.5-5.0); ALT/SGPT 81 U/L (9-52); AST/SGOT 71 U/L (14-36); BLOOD UREA NITROGEN 8 mg/dL (7-17); CALCIUM 9.2 mg/dl (8.6-10.4); GFR AFRICAN-AMERICAN > 60; GFR NON-AFRICAN AMERICAN > 60
--- NOTE | 2017-05-30 12:45 | CP.PCM.CON ---
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 She also reports having persistent productive cough for two months duration. Pt has taken two antibiotics in the past, and she was recently given Bactrim given by her PCP. At admission, patient complained of SOB. Pt denies Fever, chills, chest pain, hematuria, hematochezia Pt was seen and examined at bedside. Pt reports having been diagnosed with Cryptogenic Organziing Pneumonia a year ago. She has been on steroids. She admits having been exposed to a bird pet at home around a year ago, and currently has a different bird at home. She complains of productive coughing with clear/yellow sputum. Pt denies chest pain, palpitation, Nausea or vomiting. Pt denies shortness of breath. Pt has high CK and elevated LFT. Patient is positive for cannabinoid PMHx: Anemia, Bronchitis, COPD DM, HTN, Pneumonia PSH: x 3 All: Seasonal allergies FMHX: None SH: Tobacco use, social alcohol use, no illicit drug use Home Meds: Bactrim Assessment and Plan: 1. Chronic cough - 02 Sat 96% on 2L NC - LFT, CT scans done 1 year - Order CT scan - contact Dr Barney for previous reports for her diagnosis - Continue Solumedrol 40mg - Continue Advair, Singulair - duoneb, ventolin Tx 2. Possible Pulmonary HTN - CT scan - possible echo? 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) - NEUROLOGICAL Hx Neurological Disorder: No - HEENT Hx HEENT Problems: Yes Other/Comment: wear glasses for astigmatism - RENAL Hx Chronic Kidney Disease: No - ENDOCRINE/METABOLIC Hx Diabetes Mellitus Type 2: Yes - HEMATOLOGICAL/ONCOLOGICAL Hx Anemia: Yes Hx Hepatitis C: No Hx Human Immunodeficiency Virus (HIV): No - INTEGUMENTARY Hx Dermatological Problems: No - MUSCULOSKELETAL/RHEUMATOLOGICAL Hx Musculoskeletal Disorders: No Hx Falls: No - GASTROINTESTINAL Hx Gastrointestinal Disorders: Yes Hx Diarrhea: Yes - GENITOURINARY/GYNECOLOGICAL Hx Genitourinary Disorders: No Hx Sexually Transmitted Disorders: No - PSYCHIATRIC Hx Psychophysiologic Disorder: No Hx Substance Use: No - SURGICAL HISTORY Hx Surgeries: Yes Hx Cardiac Catheterization: Yes Hx Section: Yes (x3) Other/Comment: left ovary removed 2006. Lung biposy (03/2015) - ANESTHESIA Hx Anesthesia: Yes Hx Anesthesia Reactions: No Hx Malignant Hyperthermia: No Meds Allergies/Adverse Reactions: Allergies Allergy/AdvReac Type Severity Reaction Status Date / Time seasonal Allergy Uncoded 05/29/17 10:45 - Medications Medications: Current Medications Acetaminophen (Tylenol 325mg Tab) 650 mg PO TID PRN PRN Reason: Pain, moderate (4-7) Last Admin: 05/30/17 12:35 Dose: 650 mg Albuterol (Ventolin Hfa 90 Mcg/Actuation (8 G)) 2 puff INH RQ4 PRN PRN Reason: Shortness of Breath Albuterol/Ipratropium (Duoneb 3 Mg/0.5 Mg (3 Ml) Ud) 3 ml INH RQ6 [facility] Last Admin: 05/30/17 07:30 Dose: 3 ml Benzonatate (Tessalon Perles) 100 mg PO TID [facility] Last Admin: 05/30/17 09:59 Dose: 100 mg Heparin Sodium (Porcine) (Heparin) 5,000 units SC Q12 [facility] Last Admin: 05/30/17 10:22 Dose: Not Given Sodium Chloride (Sodium Chloride 0.9%) 1,000 mls @ 100 mls/hr IV .Q10H [facility] Last Admin: 05/30/17 08:45 Dose: 100 mls/hr Insulin Human Regular (Novolin R) 0 unit SC ACHS [facility] PRN Reason: Protocol Last Admin: 05/30/17 12:00 Dose: 1 unit Methylprednisolone (Solu-Medrol) 40 mg IVP Q6H [facility] Last Admin: 05/30/17 10:00 Dose: 40 mg Montelukast Sodium (Singulair) 10 mg PO HS [facility] Last Admin: 05/29/17 22:42 Dose: 10 mg Ondansetron HCl (Zofran Odt) 4 mg PO Q6H PRN PRN Reason: Nausea/Vomiting Pantoprazole Sodium (Protonix Ec Tab) 40 mg PO DAILY [facility] Last Admin: 05/30/17 09:57 Dose: 40 mg Fluticasone/Salmeterol (Advair Diskus 500/50) 1 puff INH RQ12 [facility] Last Admin: 05/30/17 10:33 Dose: Not Given Results - Vital Signs Recent Vital Signs: Last Vital Signs Temp 98.0 F 05/30/17 07:38 Pulse 98 H 05/30/17 07:38 Resp 20 05/30/17 07:38 BP 108/68 05/30/17 07:38 Pulse Ox 96 05/30/17 07:38 - Labs Result Diagrams: 05/30/17 08:45 05/30/17 11:41 Labs: Laboratory Results - last 24 hr 05/29/17 05/29/17 05/29/17 14:39 14:45 21:20 WBC RBC Hgb Hct MCV MCH MCHC RDW Plt Count MPV Sodium Potassium Chloride Carbon Dioxide Anion Gap BUN Creatinine Est GFR ( Amer) Est GFR (Non-Af Amer) POC Glucose (mg/dL) 179 H Random Glucose Hemoglobin A1c Calcium Iron TIBC % Saturation Total Bilirubin AST ALT Alkaline Phosphatase Total Creatine Kinase Total Protein Albumin Globulin Albumin/Globulin Ratio Triglycerides Cholesterol LDL Cholesterol Direct HDL Cholesterol Vitamin B12 Folate TSH 3rd Generation Urine Opiates Screen Negative Urine Methadone Screen Negative Ur Barbiturates Screen Negative Ur Phencyclidine Scrn Negative Ur Amphetamines Screen Negative U Benzodiazepines Scrn Negative U Oth Cocaine Metabols Negative U Cannabinoids Screen Positive H Alcohol, Quantitative < 10 IgG Hepatitis A IgM Ab Hep Bs Antigen Hep B Core IgM Ab Hepatitis C Antibody 05/30/17 05/30/17 05/30/17 06:59 08:45 08:45 WBC RBC Hgb Hct MCV MCH MCHC RDW Plt Count MPV Sodium Potassium Chloride Carbon Dioxide Anion Gap BUN Creatinine 0.5 L Est GFR ( Amer) > 60 Est GFR (Non-Af Amer) > 60 POC Glucose (mg/dL) 153 H Random Glucose Hemoglobin A1c Calcium Iron 47 TIBC 395 % Saturation 12 L Total Bilirubin AST ALT Alkaline Phosphatase Total Creatine Kinase 770 H Total Protein Albumin Globulin Albumin/Globulin Ratio Triglycerides 184 H Cholesterol 164 LDL Cholesterol Direct 107 HDL Cholesterol 25 L Vitamin B12 379 Folate 16.8 TSH 3rd Generation Urine Opiates Screen Urine Methadone Screen Ur Barbiturates Screen Ur Phencyclidine Scrn Ur Amphetamines Screen U Benzodiazepines Scrn U Oth Cocaine Metabols U Cannabinoids Screen Alcohol, Quantitative IgG Hepatitis A IgM Ab Hep Bs Antigen Hep B Core IgM Ab Hepatitis C Antibody 05/30/17 05/30/17 05/30/17 08:45 08:45 08:45 WBC 5.8 RBC 4.04 Hgb 12.9 Hct 37.5 MCV 92.7 MCH 31.9 H MCHC 34.4 RDW 13.4 Plt Count 350 MPV 8.2 Sodium 140 Potassium 4.2 Chloride 103 Carbon Dioxide 21 L Anion Gap 20 BUN 9 Creatinine 0.5 L Est GFR ( Amer) > 60 Est GFR (Non-Af Amer) > 60 POC Glucose (mg/dL) Random Glucose 161 H Hemoglobin A1c 6.4 Calcium 8.9 Iron TIBC % Saturation Total Bilirubin AST ALT Alkaline Phosphatase Total Creatine Kinase Total Protein Albumin Globulin Albumin/Globulin Ratio Triglycerides Cholesterol LDL Cholesterol Direct HDL Cholesterol Vitamin B12 Folate TSH 3rd Generation 0.35 L Urine Opiates Screen Urine Methadone Screen Ur Barbiturates Screen Ur Phencyclidine Scrn Ur Amphetamines Screen U Benzodiazepines Scrn U Oth Cocaine Metabols U Cannabinoids Screen Alcohol, Quantitative IgG Hepatitis A IgM Ab Hep Bs Antigen Hep B Core IgM Ab Hepatitis C Antibody 05/30/17 05/30/17 05/30/17 08:45 11:21 11:41 WBC RBC Hgb Hct MCV MCH MCHC RDW Plt Count MPV Sodium 141 Potassium 3.9 Chloride 103 Carbon Dioxide 17 L Anion Gap 24 H BUN 8 Creatinine 0.5 L Est GFR ( Amer) > 60 Est GFR (Non-Af Amer) > 60 POC Glucose (mg/dL) 159 H Random Glucose 168 H Hemoglobin A1c Calcium 9.2 Iron TIBC % Saturation Total Bilirubin 0.5 AST 71 H D ALT 81 H Alkaline Phosphatase 103 Total Creatine Kinase 829 H Total Protein 8.9 H Albumin 4.1 Globulin 4.8 H Albumin/Globulin Ratio 0.9 L Triglycerides Cholesterol LDL Cholesterol Direct HDL Cholesterol Vitamin B12 Folate TSH 3rd Generation Urine Opiates Screen Urine Methadone Screen Ur Barbiturates Screen Ur Phencyclidine Scrn Ur Amphetamines Screen U Benzodiazepines Scrn U Oth Cocaine Metabols U Cannabinoids Screen Alcohol, Quantitative IgG Hepatitis A IgM Ab Negative Hep Bs Antigen Negative Hep B Core IgM Ab Negative Hepatitis C Antibody Negative 05/30/17 11:51 WBC RBC Hgb Hct MCV MCH MCHC RDW Plt Count MPV Sodium Potassium Chloride Carbon Dioxide Anion Gap BUN Creatinine Est GFR ( Amer) Est GFR (Non-Af Amer) POC Glucose (mg/dL) Random Glucose Hemoglobin A1c Calcium Iron TIBC % Saturation Total Bilirubin AST ALT Alkaline Phosphatase Total Creatine Kinase Total Protein Albumin Globulin Albumin/Globulin Ratio Triglycerides Cholesterol LDL Cholesterol Direct HDL Cholesterol Vitamin B12 Folate TSH 3rd Generation Urine Opiates Screen Urine Methadone Screen Ur Barbiturates Screen Ur Phencyclidine Scrn Ur Amphetamines Screen U Benzodiazepines Scrn U Oth Cocaine Metabols U Cannabinoids Screen Alcohol, Quantitative IgG 1886.0 H Hepatitis A IgM Ab Hep Bs Antigen Hep B Core IgM Ab Hepatitis C Antibody
[2017-05-30] MEDS: Azithromycin 500 MG in Sodium Chloride 0.9% 250 ML IVPB SCH (18:21)
[2017-05-30] MEDS ORDERED: Apap-Butalbital-Caffeine 325-50-40mg Tab PO ONE (18:36)
[2017-05-31] MEDS: Albuterol-Ipratrop 3 mg / 0.5 (3 ml) UD INH SCH ×4 (02:13→19:59)
[2017-05-31] MEDS: Sodium Chloride 0.9% 1,000 ML IV SCH ×2 (03:11→14:45)
[2017-05-31] MEDS: MethylPREDNISolone 40 mg Vial IVP SCH ×3 (05:48→18:40)
[2017-05-31] MEDS: (Novolin R) Insulin Human Regular 100 units/ml vial SC SCH ×4 (08:02→22:33)
[2017-05-31] MEDS: Fluticasone-Salmeterol 500-50mcg Diskus INH SCH (08:18)
--- NOTE | 2017-05-31 08:54 | CP.PCM.PN ---
Subjective - Date & Time of Evaluation Date of Evaluation: 05/31/17 Time of Evaluation: 08:20 - Subjective Subjective: The patient seen and examined Still complaining of cough and dyspnea CAT scan of the chest noted Patient with history of cryptogenic pneumonitis status post lung biopsy and extensive workup at [facility] Continue IV steroids Continue azithromycin autoimmune workup Objective - Vital Signs/Intake and Output Vital Signs (last 24 hours): Temp Pulse Resp BP Pulse Ox 98 F 94 H 20 99/64 L 95 05/31/17 08:00 05/31/17 08:00 05/31/17 08:00 05/31/17 08:00 05/31/17 08:00 Intake and Output: 05/31/17 05/31/17 06:59 18:59 Intake Total 1989 Balance 1989 - Medications Medications: Current Medications Acetaminophen (Tylenol 325mg Tab) 650 mg PO TID PRN PRN Reason: Pain, moderate (4-7) Last Admin: 05/30/17 12:35 Dose: 650 mg Albuterol (Ventolin Hfa 90 Mcg/Actuation (8 G)) 2 puff INH RQ4 PRN PRN Reason: Shortness of Breath Albuterol/Ipratropium (Duoneb 3 Mg/0.5 Mg (3 Ml) Ud) 3 ml INH RQ6 [facility] Last Admin: 05/31/17 07:12 Dose: 3 ml Benzonatate (Tessalon Perles) 100 mg PO TID [facility] Last Admin: 05/30/17 17:41 Dose: 100 mg Heparin Sodium (Porcine) (Heparin) 5,000 units SC Q12 [facility] Last Admin: 05/30/17 21:48 Dose: 5,000 units Sodium Chloride (Sodium Chloride 0.9%) 1,000 mls @ 100 mls/hr IV .Q10H [facility] Last Admin: 05/31/17 03:11 Dose: 100 mls/hr Azithromycin 500 mg/ Sodium (Chloride) 250 mls @ 167 mls/hr IVPB Q24H [facility] PRN Reason: Protocol Last Admin: 05/30/17 18:21 Dose: 167 mls/hr Insulin Human Regular (Novolin R) 0 unit SC ACHS [facility] PRN Reason: Protocol Last Admin: 05/31/17 08:02 Dose: Not Given Methylprednisolone (Solu-Medrol) 40 mg IVP Q8H [facility] Last Admin: 05/31/17 05:48 Dose: 40 mg Montelukast Sodium (Singulair) 10 mg PO HS [facility] Last Admin: 05/30/17 21:48 Dose: 10 mg Ondansetron HCl (Zofran Odt) 4 mg PO Q6H PRN PRN Reason: Nausea/Vomiting Pantoprazole Sodium (Protonix Ec Tab) 40 mg PO DAILY [facility] Last Admin: 05/30/17 09:57 Dose: 40 mg Fluticasone/Salmeterol (Advair Diskus 500/50) 1 puff INH RQ12 [facility] Last Admin: 05/31/17 08:18 Dose: 1 puff - Labs Labs: 05/30/17 08:45 05/30/17 11:41
[2017-05-31 09:00] LABS: HEMOGLOBIN 11.7 g/dL (11.0-16.0); MEAN CELL VOLUME 92.5 fL (81.0-99.0); MEAN CORPUSCULAR HEMOGLOBIN 31.8 pg (27.0-31.0); MEAN CORPUSCULAR HGB CONC 34.3 g/dL (33.0-37.0); MEAN PLATELET VOLUME 8.6 fL (7.2-11.7); RBC 3.67 Mil/uL (3.80-5.20); RED CELL DISTRIBUTION WIDTH 13.7 % (11.5-14.5); WHITE BLOOD COUNT 6.8 K/uL (4.8-10.8)
[2017-05-31 09:33] LABS: ALB/GLOB RATIO 0.9 (1.0-2.1); ALBUMIN 3.8 g/dL (3.5-5.0); ALT/SGPT 60 U/L (9-52); AST/SGOT 39 U/L (14-36); BLOOD UREA NITROGEN 6 mg/dL (7-17); CALCIUM 8.8 mg/dl (8.6-10.4); GFR AFRICAN-AMERICAN > 60; GFR NON-AFRICAN AMERICAN > 60
[2017-05-31] MEDS: Pantoprazole 40 mg EC Tab PO SCH (10:06)
--- NOTE | 2017-05-31 13:56 | CP.PCM.CON ---
<Jesse Yost - Last Filed: 05/31/17 13:53> History of Present Illness - History of Present Illness History of Present Illness: PGY4 GI Follow Pt seen and examined bedside Abd pain improved Denies any BM tolerating diet ROS: 12 point ROS conducted, neg other than above Past Patient History - Infectious Disease Hx of Infectious Diseases: None - Past Medical History & Family History Past Medical History?: Yes - Past Social History Smoking Status: Former Smoker - CARDIAC Hx Cardiac Disorders: No - PULMONARY Hx Bronchitis: Yes Hx Pneumonia: Yes (HEAD OF ACQUISITIONS) - NEUROLOGICAL Hx Neurological Disorder: No - HEENT Hx HEENT Problems: Yes Other/Comment: wear glasses for astigmatism - RENAL Hx Chronic Kidney Disease: No - ENDOCRINE/METABOLIC Hx Diabetes Mellitus Type 2: Yes - HEMATOLOGICAL/ONCOLOGICAL Hx Anemia: Yes Hx Hepatitis C: No Hx Human Immunodeficiency Virus (HIV): No - INTEGUMENTARY Hx Dermatological Problems: No - MUSCULOSKELETAL/RHEUMATOLOGICAL Hx Musculoskeletal Disorders: No Hx Falls: No - GASTROINTESTINAL Hx Gastrointestinal Disorders: Yes Hx Diarrhea: Yes - GENITOURINARY/GYNECOLOGICAL Hx Genitourinary Disorders: No Hx Sexually Transmitted Disorders: No - PSYCHIATRIC Hx Psychophysiologic Disorder: No Hx Substance Use: No - SURGICAL HISTORY Hx Surgeries: Yes Hx Cardiac Catheterization: Yes Hx Section: Yes (x3) Other/Comment: left ovary removed 2006. Lung biposy (03/2015) - ANESTHESIA Hx Anesthesia: Yes Hx Anesthesia Reactions: No Hx Malignant Hyperthermia: No Meds Allergies/Adverse Reactions: Allergies Allergy/AdvReac Type Severity Reaction Status Date / Time seasonal Allergy Uncoded 05/29/17 10:45 - Medications Medications: Current Medications Acetaminophen (Tylenol 325mg Tab) 650 mg PO TID PRN PRN Reason: Pain, moderate (4-7) Last Admin: 05/30/17 12:35 Dose: 650 mg Albuterol (Ventolin Hfa 90 Mcg/Actuation (8 G)) 2 puff INH RQ4 PRN PRN Reason: Shortness of Breath Albuterol/Ipratropium (Duoneb 3 Mg/0.5 Mg (3 Ml) Ud) 3 ml INH RQ6 [facility] Last Admin: 05/31/17 13:48 Dose: 3 ml Benzonatate (Tessalon Perles) 100 mg PO TID [facility] Last Admin: 05/31/17 10:06 Dose: 100 mg Heparin Sodium (Porcine) (Heparin) 5,000 units SC Q12 [facility] Last Admin: 05/31/17 10:06 Dose: 5,000 units Sodium Chloride (Sodium Chloride 0.9%) 1,000 mls @ 100 mls/hr IV .Q10H [facility] Last Admin: 05/31/17 03:11 Dose: 100 mls/hr Azithromycin 500 mg/ Sodium (Chloride) 250 mls @ 167 mls/hr IVPB Q24H [facility] PRN Reason: Protocol Last Admin: 05/30/17 18:21 Dose: 167 mls/hr Ibuprofen (Motrin Tab) 400 mg PO Q6 PRN PRN Reason: Headache Insulin Human Regular (Novolin R) 0 unit SC ACHS [facility] PRN Reason: Protocol Last Admin: 05/31/17 11:54 Dose: Not Given Methylprednisolone (Solu-Medrol) 40 mg IVP Q8H [facility] Last Admin: 05/31/17 05:48 Dose: 40 mg Montelukast Sodium (Singulair) 10 mg PO HS [facility] Last Admin: 05/30/17 21:48 Dose: 10 mg Nortriptyline HCl (Pamelor) 10 mg PO [facility] Ondansetron HCl (Zofran Odt) 4 mg PO Q6H PRN PRN Reason: Nausea/Vomiting Pantoprazole Sodium (Protonix Ec Tab) 40 mg PO DAILY [facility] Last Admin: 05/31/17 10:06 Dose: 40 mg Physical Exam - Constitutional Appears: Well, No Acute Distress - Head Exam Head Exam: ATRAUMATIC, NORMOCEPHALIC - Eye Exam Eye Exam: Normal appearance. absent: Scleral icterus - ENT Exam ENT Exam: Mucous Membranes Moist, Normal Exam - Neck Exam Neck exam: Positive for: Normal Inspection - Respiratory Exam Respiratory Exam: Clear to Auscultation Bilateral, NORMAL BREATHING PATTERN. absent: Rales, Rhonchi, Wheezes, Respiratory Distress - Cardiovascular Exam Cardiovascular Exam: REGULAR RHYTHM, +S1, +S2 - GI/Abdominal Exam GI & Abdominal Exam: Normal Bowel Sounds, Soft. absent: Diminished Bowel Sounds , Distended, Firm, Guarding, Organomegaly, Rebound, Rigid - Extremities Exam Extremities exam: Negative for: joint swelling, pedal edema - Neurological Exam Neurological exam: Alert, Oriented x3 - Psychiatric Exam Psychiatric exam: Normal Affect, Normal Mood - Skin Skin Exam: Dry, Intact, Normal Color, Warm Results - Vital Signs Recent Vital Signs: Last Vital Signs Temp 98 F 05/31/17 08:00 Pulse 94 H 05/31/17 08:00 Resp 20 05/31/17 08:00 BP 99/64 L 05/31/17 08:00 Pulse Ox 95 05/31/17 08:00 - Labs Result Diagrams: 05/31/17 08:48 05/31/17 08:48 Labs: Laboratory Results - last 24 hr 05/30/17 05/30/17 05/31/17 16:20 21:34 07:20 WBC RBC Hgb Hct MCV MCH MCHC RDW Plt Count MPV Sodium Potassium Chloride Carbon Dioxide Anion Gap BUN Creatinine Est GFR ( Amer) Est GFR (Non-Af Amer) POC Glucose (mg/dL) 140 H 135 H 139 H Random Glucose Calcium Total Bilirubin AST ALT Alkaline Phosphatase Total Protein Albumin Globulin Albumin/Globulin Ratio 05/31/17 05/31/17 05/31/17 08:48 08:48 11:33 WBC 6.8 RBC 3.67 L Hgb 11.7 Hct 34.0 MCV 92.5 MCH 31.8 H MCHC 34.3 RDW 13.7 Plt Count 299 MPV 8.6 Sodium 140 Potassium 3.7 Chloride 104 Carbon Dioxide 20 L Anion Gap 21 H BUN 6 L Creatinine 0.5 L Est GFR ( Amer) > 60 Est GFR (Non-Af Amer) > 60 POC Glucose (mg/dL) 139 H Random Glucose 183 H Calcium 8.8 Total Bilirubin 0.5 AST 39 H D ALT 60 H D Alkaline Phosphatase 91 Total Protein 7.8 Albumin 3.8 Globulin 4.0 H Albumin/Globulin Ratio 0.9 L Assessment & Plan - Assessment and Plan (Free Text) Assessment: Patient is a 32yo female with PMHx significant for DMT2, cryptogenic organizing pneumonia (HEAD OF ACQUISITIONS), asthma who presented yesterday with complaint of chest and abdominal pain along with nausea/vomiting -Abdominal pain, nausea, vomiting - resolved -Elevated LFTs -DMT2 -HEAD OF ACQUISITIONS -Elevated CK Plan: -Recommend initiation of PPI therapy with Protonix 40mg PO QAMAC given ongoing use of steroids and h/o heavy NSAID use -Avoid NSAIDs where possible -hepatitis serologies negative -complete autoimmune work-up pending; IGG elevated; rest neg -U/S abdomen reviewed - no evidence for biliary disease - suspect hepatic steatosis; encourage diet/weight loss/exercise -Consider rheumatologic evaluation - R/O polymyositis given muscle weakness/ fatigue/elevated CK in absence of other causes -Diet as tolerated D/W Dr. Diego <Nicolas Diego - Last Filed: 05/31/17 16:43> Meds - Medications Medications: Current Medications Acetaminophen (Tylenol 325mg Tab) 650 mg PO TID PRN PRN Reason: Pain, moderate (4-7) Last Admin: 05/30/17 12:35 Dose: 650 mg Albuterol (Ventolin Hfa 90 Mcg/Actuation (8 G)) 2 puff INH RQ4 PRN PRN Reason: Shortness of Breath Albuterol/Ipratropium (Duoneb 3 Mg/0.5 Mg (3 Ml) Ud) 3 ml INH RQ6 [facility] Last Admin: 05/31/17 13:48 Dose: 3 ml Benzonatate (Tessalon Perles) 100 mg PO TID [facility] Last Admin: 05/31/17 14:44 Dose: 100 mg Heparin Sodium (Porcine) (Heparin) 5,000 units SC Q12 [facility] Last Admin: 05/31/17 10:06 Dose: 5,000 units Sodium Chloride (Sodium Chloride 0.9%) 1,000 mls @ 100 mls/hr IV .Q10H [facility] Last Admin: 05/31/17 14:45 Dose: Not Given Azithromycin 500 mg/ Sodium (Chloride) 250 mls @ 167 mls/hr IVPB Q24H [facility] PRN Reason: Protocol Last Admin: 05/30/17 18:21 Dose: 167 mls/hr Ibuprofen (Motrin Tab) 400 mg PO Q6 PRN PRN Reason: Headache Insulin Human Regular (Novolin R) 0 unit SC ACHS [facility] PRN Reason: Protocol Last Admin: 05/31/17 11:54 Dose: Not Given Methylprednisolone (Solu-Medrol) 40 mg IVP Q8H [facility] Last Admin: 05/31/17 14:44 Dose: 40 mg Montelukast Sodium (Singulair) 10 mg PO HS [facility] Last Admin: 05/30/17 21:48 Dose: 10 mg Nortriptyline HCl (Pamelor) 10 mg PO HS [facility] Ondansetron HCl (Zofran Odt) 4 mg PO Q6H PRN PRN Reason: Nausea/Vomiting Pantoprazole Sodium (Protonix Ec Tab) 40 mg PO DAILY [facility] Last Admin: 05/31/17 10:06 Dose: 40 mg Polyethylene Glycol (Miralax) 17 gm PO DAILY [facility] Results - Vital Signs Recent Vital Signs: Last Vital Signs Temp 97.8 F 05/31/17 15:00 Pulse 80 05/31/17 15:00 Resp 20 05/31/17 15:00 BP 111/68 05/31/17 15:00 Pulse Ox 95 05/31/17 15:00 - Labs Result Diagrams: 05/31/17 08:48 05/31/17 08:48 Labs: Laboratory Results - last 24 hr 05/30/17 05/30/17 05/31/17 14:01 21:34 07:20 WBC RBC Hgb Hct MCV MCH MCHC RDW Plt Count MPV Sodium Potassium Chloride Carbon Dioxide Anion Gap BUN Creatinine Est GFR ( Amer) Est GFR (Non-Af Amer) POC Glucose (mg/dL) 135 H 139 H Random Glucose Calcium Total Bilirubin AST ALT Alkaline Phosphatase Total Protein Albumin Globulin Albumin/Globulin Ratio SARAH Nuclear Membr Pat Negative 05/31/17 05/31/17 05/31/17 08:48 08:48 11:33 WBC 6.8 RBC 3.67 L Hgb 11.7 Hct 34.0 MCV 92.5 MCH 31.8 H MCHC 34.3 RDW 13.7 Plt Count 299 MPV 8.6 Sodium 140 Potassium 3.7 Chloride 104 Carbon Dioxide 20 L Anion Gap 21 H BUN 6 L Creatinine 0.5 L Est GFR ( Amer) > 60 Est GFR (Non-Af Amer) > 60 POC Glucose (mg/dL) 139 H Random Glucose 183 H Calcium 8.8 Total Bilirubin 0.5 AST 39 H D ALT 60 H D Alkaline Phosphatase 91 Total Protein 7.8 Albumin 3.8 Globulin 4.0 H Albumin/Globulin Ratio 0.9 L SARAH Nuclear Membr Pat Attending/Attestation - Attestation I have personally seen and examined this patient.: Yes I have fully participated in the care of the patient.: Yes I have reviewed all pertinent clinical information: Yes Notes (Text): 05/31/17 16:42 32 year old female with HEAD OF ACQUISITIONS admitted with cough, also with abdo pain, n/v. Symptoms improving. Continue ppi. Supportive measures. Advance diet as tolerated. Will sign off.
--- NOTE | 2017-05-31 14:17 | MRI ---
PROCEDURE: MRI BRAIN WITHOUT CONTRAST HISTORY: hreadache COMPARISON: None. TECHNIQUE: Multiplanar, multisequence MR images of the brain were obtained without intravenous contrast enhancement. FINDINGS: HEMORRHAGE: None DWI: No evidence of an acute or early subacute infarction. BRAIN PARENCHYMA: Intrinsic signal throughout the vasquez and white matter structures above below the tentorium includes appears within normal limits including the brainstem. There is no mass effect, parenchymal edema or loss of the corticomedullary differentiation. Midline brain anatomy appears within normal limits including the corpus callosum, brainstem and craniocervical junction. There is no suspicious extra-axial fluid collection identified. VENTRICLES: Unremarkable. No hydrocephalus. CRANIUM: Unremarkable. ORBITS: Grossly unremarkable. PARANASAL SINUSES/MASTOIDS: Clear VASCULAR SYSTEM: Skull base flow voids intact. OTHER FINDINGS: None. IMPRESSION: Unremarkable non contrast enhanced MRI of the brain.
[2017-05-31] MEDS: POLYETHYLENE GLYCOL 3350 17 GM/Dose PACKET PO SCH (16:45)
[2017-05-31] MEDS: Azithromycin 500 MG in Sodium Chloride 0.9% 250 ML IVPB SCH (17:46)
--- NOTE | 2017-05-31 21:45 | CON ---
DATE: REASON FOR CONSULTATION: Headaches. HISTORY OF PRESENT ILLNESS: The patient is a 32-year-old female who has been asked for evaluation of headaches. The patient said she has headaches all her life. She gets them on and off, but however for the last several months, she has been having it almost every day. She has been taking ibuprofen which some times helps, other times does not help her headache. Headaches are some times associated with nausea. She does get throbbing headache associated with photophobia. The patient is admitted to the hospital because of shortness of breath and chest pain. PAST MEDICAL HISTORY: Includes diabetes mellitus, COPD. HOME MEDICATIONS: Include prednisone, Glucophage, Protonix, Singulair, Levemir, Advair, Ventolin and albuterol. ALLERGIES: NO KNOWN DRUG ALLERGIES. SOCIAL HISTORY: She is an ex-smoker. Denies current smoking. Denies use of alcohol or illicit drugs. FAMILY HISTORY: Reviewed and noncontributory to the case. PHYSICAL EXAMINATION: GENERAL: The patient is a young pleasant female, lying in the bed, in no acute distress. VITAL SIGNS: Her blood pressure is 99/64, heart rate is 94 per minute, breathing at the rate of 16 per minute, temperature 98 degrees Fahrenheit. HEENT: Head, normocephalic and atraumatic. NECK: Supple. There are no carotid bruits. LUNGS: Clear. CARDIOVASCULAR SYSTEM: S1 and S2 audible. No murmurs. ABDOMEN: Soft and nontender with bowel sounds present. NEUROLOGY: Mental status: The patient is awake; alert; oriented to time, place, person. Her speech is fluent. Naming and repetition normal. Memory and cognition are intact. Cranial nerve examination: Pupils are 4 mm bilaterally, reactive to light. Visual perez are full. Extraocular movements are intact. There is no facial asymmetry. Palate is upgoing bilaterally and tongue is midline. Motor examination: Tone is normal. Power is 5/5 bilaterally in all extremities. Reflexes are 1+ and symmetrical. Plantars are downgoing bilaterally. Cerebellar Examination: [id number] shows no dysmetria. Gait is deferred at the moment. There is no meningeal sign. LABORATORY DATA: Labs reviewed, shows WBC of 6.8, hemoglobin 11.7, hematocrit 34.0, and platelets of 299. Sodium is 140, potassium 3.7, chloride of 104, carbon dioxide content of 20, BUN of 6, creatinine of 0.5 and glucose of 183. IMPRESSION: Chronic migraine headaches. RECOMMENDATIONS: 1. The patient is to have MRI of the brain without contrast. 2. The patient to be started on nortriptyline 10 mg at bedtime for headache prophylaxis. The dose needs to be increased as outpatient if she tolerates the medication. 3. The patient may have ibuprofen on an as needed basis to relieve her headaches. 4. Discontinue supportive care and other treatment. Thank you for the opportunity to participate in the care of this patient. Patrick Bhatia MD
--- NOTE | 2017-05-31 22:15 | PN ---
DATE: SUBJECTIVE: The patient was seen and examined on the bedside. Looking comfortable. No nausea, vomiting or diarrhea. No hematuria or hematochezia. No swelling of the leg. No chest pain. No palpitations, but still having coughing and shortness of breath. Getting ready to go for MRI. Abdominal pain improved. Denies any bowel movement. Tolerating diet. REVIEW OF SYSTEMS: A 12-point review of systems conducted and negative other than the above. PHYSICAL EXAMINATION: VITAL SIGNS: Temperature 97.8, pulse 80, blood pressure 111/60, respiratory rate 20. HEENT: Head, normocephalic, atraumatic. Eyes, PERRLA. Extraocular muscles intact. Conjunctivae clear. Nose patent. Mucous membranes are moist. NECK: Supple. No carotid bruits. No JVD or thyromegaly. CHEST: Bilaterally symmetrical. HEART: S1, S2 positive. LUNGS: Clear to auscultation. ABDOMEN: Soft. Bowel sounds positive. No organomegaly. EXTREMITIES: No edema, no cyanosis. NEUROLOGIC: The patient is awake, alert. Moving all 4 extremities. No focal deficits. MEDICATIONS: Azithromycin, albuterol, heparin, MiraLax, ibuprofen, NovoLog, nortriptyline, Protonix, Singulair, NS, Solu-Medrol, benzoate. LABORATORY DATA: White blood cell 6.8, hemoglobin 11.7, hematocrit 34, platelets 299, sodium 140, potassium 3.7, BUN 6, creatinine 0.5, glucose 106, 139. AST 39, ALT 60. ASSESSMENT AND PLAN: Ms. Caity Mast is a 32 years old lady with renal insufficiency, diabetes mellitus, abnormal liver function test, cannabinoid positive, SARAH nuclear membrane pattern negative. Went for brain MRI, unremarkable noncontrast enhanced MRI of the brain. Went for CAT scan of the chest, extensive heterogenous bilateral ground glass opacity, nonspecific. Seen by Dr. Nicolas Diego, [employer]. Has diabetes mellitus type 2, chronic obstructive pulmonary disease, asthma. Came in with chest pain, abdominal pain with nausea and vomiting. Abdominal pain, nausea and vomiting resolved. Still has elevated liver function test. Elevated CK. Recommended initiation of the PPI with Protonix 40 mg p.o. every daily. We will decrease steroid. The patient has a history of heavy nonsteroidal antiinflammatory drug use. Try to avoid nonsteroidal antiinflammatory drug as per GI. Hepatitis serology negative. Ultrasound noted. Seen by Dr. Khoa Verdugo, [facility]. We will taper down steroid. Repeat labs. GI and DVT prophylaxis. We will follow up. Alondra Lyles MD
[2017-06-01] MEDS: MethylPREDNISolone 40 mg Vial IVP SCH ×3 (01:37→17:28)
[2017-06-01] MEDS: Albuterol-Ipratrop 3 mg / 0.5 (3 ml) UD INH SCH ×4 (01:54→21:06)
[2017-06-01] MEDS: Sodium Chloride 0.9% 1,000 ML IV SCH ×4 (06:11→20:40)
[2017-06-01] MEDS: (Novolin R) Insulin Human Regular 100 units/ml vial SC SCH ×4 (08:30→21:55)
[2017-06-01] MEDS: POLYETHYLENE GLYCOL 3350 17 GM/Dose PACKET PO SCH (10:15)
[2017-06-01] MEDS: Pantoprazole 40 mg EC Tab PO SCH (10:15)
[2017-06-01] MEDS: Azithromycin 500 MG in Sodium Chloride 0.9% 250 ML IVPB SCH (17:28)
--- NOTE | 2017-06-01 19:05 | CP.PCM.PN ---
Subjective - Date & Time of Evaluation Date of Evaluation: 06/01/17 Time of Evaluation: 16:30 - Subjective Subjective: the patient seen and examined Breathing better but still complaining of cough productive off clear phlegm No further hemoptysis Continue antibiotics and IV steroids Continue nebulizer treatment Objective - Vital Signs/Intake and Output Vital Signs (last 24 hours): Temp Pulse Resp BP Pulse Ox 97.8 F 89 20 112/76 97 06/01/17 16:00 06/01/17 16:00 06/01/17 16:00 06/01/17 16:00 06/01/17 16:00 Intake and Output: 06/01/17 06/02/17 18:59 06:59 Intake Total 2160 Balance 2160 - Medications Medications: Current Medications Acetaminophen (Tylenol 325mg Tab) 650 mg PO TID PRN PRN Reason: Pain, moderate (4-7) Last Admin: 06/01/17 16:26 Dose: 650 mg Albuterol (Ventolin Hfa 90 Mcg/Actuation (8 G)) 2 puff INH RQ4 PRN PRN Reason: Shortness of Breath Albuterol/Ipratropium (Duoneb 3 Mg/0.5 Mg (3 Ml) Ud) 3 ml INH RQ6 [facility] Last Admin: 06/01/17 13:45 Dose: 3 ml Benzonatate (Tessalon Perles) 100 mg PO TID [facility] Last Admin: 06/01/17 17:28 Dose: 100 mg Heparin Sodium (Porcine) (Heparin) 5,000 units SC Q12 [facility] Last Admin: 06/01/17 10:16 Dose: 5,000 units Sodium Chloride (Sodium Chloride 0.9%) 1,000 mls @ 100 mls/hr IV .Q10H [facility] Last Admin: 06/01/17 10:17 Dose: Not Given Azithromycin 500 mg/ Sodium (Chloride) 250 mls @ 167 mls/hr IVPB Q24H [facility] PRN Reason: Protocol Last Admin: 06/01/17 17:28 Dose: 167 mls/hr Insulin Human Regular (Novolin R) 0 unit SC ACHS [facility] PRN Reason: Protocol Last Admin: 06/01/17 16:55 Dose: 1 unit Methylprednisolone (Solu-Medrol) 30 mg IVP Q8H [facility] Last Admin: 06/01/17 17:28 Dose: 30 mg Montelukast Sodium (Singulair) 10 mg PO HS [facility] Last Admin: 05/31/17 21:45 Dose: 10 mg Nortriptyline HCl (Pamelor) 10 mg PO HS [facility] Last Admin: 05/31/17 21:45 Dose: 10 mg Ondansetron HCl (Zofran Odt) 4 mg PO Q6H PRN PRN Reason: Nausea/Vomiting Pantoprazole Sodium (Protonix Ec Tab) 40 mg PO DAILY [facility] Last Admin: 06/01/17 10:15 Dose: 40 mg Polyethylene Glycol (Miralax) 17 gm PO DAILY [facility] Last Admin: 06/01/17 10:15 Dose: 17 gm - Labs Labs: 05/31/17 08:48 05/31/17 08:48
[2017-06-02] MEDS: Albuterol-Ipratrop 3 mg / 0.5 (3 ml) UD INH SCH ×4 (01:46→19:37)
[2017-06-02] MEDS: MethylPREDNISolone 40 mg Vial IVP SCH ×3 (02:43→17:05)
[2017-06-02] MEDS: (Novolin R) Insulin Human Regular 100 units/ml vial SC SCH ×4 (08:15→21:51)
[2017-06-02] MEDS: Pantoprazole 40 mg EC Tab PO SCH (10:29)
[2017-06-02] MEDS: POLYETHYLENE GLYCOL 3350 17 GM/Dose PACKET PO SCH (10:39)
--- NOTE | 2017-06-02 10:55 | PN ---
DATE: 05/30/2017 SUBJECTIVE: Patient is a 32-year-old female. Patient was seen and examined on the bedside. Still coughing. Still having shortness of breath, even is getting dyspneic when she is going to the bathroom. Getting steroid. According to the patient, she has exposure of bird pets at home around a year ago and currently has a different bird at home. Complaining of progressive cough with clear yellow phlegm. No palpitation, nausea, vomiting or diarrhea. No hematuria or hematochezia. No shortness of breath. The patient has elevated liver function tests. Positive cannabinoid. No headache. No dizziness. No chest pain. No palpitation. PHYSICAL EXAMINATION: VITAL SIGNS: Temperature 98, pulse 98, respiratory rate 20, blood pressure 105/68, pulse oximetry 96%. HEENT: Head, normocephalic and atraumatic. Eyes, PERRLA. Extraocular muscles intact. Conjunctivae clear. Nose patent. Mucous membrane moist. NECK: Supple. No carotid bruit, JVD or thyromegaly. CHEST: Bilaterally symmetrical. HEART: S1, S2 positive. LUNGS: Positive wheezing bilaterally. ABDOMEN: Soft. Bowel sounds present. No organomegaly. EXTREMITIES: No edema. No cyanosis. NEUROLOGIC: Patient is awake, alert. Follow simple commands. LABORATORY DATA: White blood cell 5.2, hemoglobin 12.9, hematocrit 37.5, platelets 250. Sodium 141, potassium 3.9, BUN 8, creatinine 0.5 , glucose 178. ASSESSMENT AND PLAN: a 32-year-old female with hyperglycemia; history of anemia; bronchitis; chronic obstructive pulmonary disease; diabetes mellitus; hypertension; pneumonia; came with chronic cough; I noted the CT scan; continue Solu-Medrol, continue Advair, Singulair, DuoNeb, Ventolin; possibly pulmonary hypertension; obesity; CAT scan of the chest done, abdominal ultrasound done, appreciated by me; seen by Dr. Nicolas Maradiaga, graduate assistant athletic trainer; cryptogenic organizing pneumonia; history of asthma; abdominal pain; nausea and vomiting resolved; elevated liver function tests, we will repeat that; elevated CK. Recommended initiation of proton pump inhibitor therapy with Protonix. Not using steroids. Avoid NSAID if possible , waiting for serology and autoimmune workup. Ultrasound of the abdomen reviewed. Consider rheumatologic evaluation, rule out polymyositis, joint and muscle weakness, fatigue, elevated CK and then in the absence of other issues. Diet as tolerated. Repeat labs. We will follow up. Alondra Lyles MD [facility]
--- NOTE | 2017-06-02 14:32 | PN ---
DATE: 06/01/2017 SUBJECTIVE: The patient was seen and examined at bedside on 06/01/2017 in [facility]. Feeling better, but still coughing, shortness of breath, especially dyspneic when going to the bathroom. No hemoptysis. No fever, no chills, and no hematuria or hematochezia. No headache, no dizziness. PHYSICAL EXAMINATION: VITAL SIGNS: Temperature 97.8, pulse 59, respiratory rate 20, blood pressure 112/76, pulse oximetry 97%. HEENT: Head: Normocephalic, atraumatic. Eyes: PERRLA. Extraocular muscles intact. Conjunctivae clear. Nose patent. Mucous membranes are moist. NECK: Supple. No carotid bruits. No JVD or thyromegaly. CHEST: Bilaterally symmetrical. HEART: S1, S2 positive. LUNGS: Clear to auscultation. ABDOMEN: Soft. Bowel sounds positive. No organomegaly. EXTREMITIES: No edema, no cyanosis. NEUROLOGIC: The patient is awake, alert. Moving all 4 extremities. No focal deficits. MEDICATIONS: Tylenol, NovoLog, Ventolin, Duoneb, Tessalon Perles, heparin, NS, Azithromycin, Solu-Medrol, Singulair, nortriptyline, Protonix, MiraLAX. LABORATORY DATA: White blood cells 6.8, hemoglobin 11.7, hematocrit 34, platelets 299. Sodium 140, potassium 3.7, BUN 6, creatinine 0.5, glucose 183. ASSESSMENT AND PLAN: Ms. Caity Mast is a 32-year-old lady with hyperglycemia, obesity, former smoker, chronic obstructive pulmonary disease, bronchitis, history of diabetes mellitus, anemia, gastroesophageal reflux disease, dyspepsia, history of cardiac catheterization, section x3, left ovary removed, lung biopsy, came with chronic obstructive pulmonary disease exacerbation, abdominal pain, symptoms improving. Continue PPI as per gastrointestinal supportive measure. Advance diet as tolerated. Gastroenterology already signed off. The patient tolerated food very well. Getting tapering dose of steroid. Industrial Staff Nurse is on the case. Repeat labs. We will follow up. Alondra Lyles MD [facility] # [id number]
--- NOTE | 2017-06-02 16:31 | CP.PCM.PN ---
Subjective - Date & Time of Evaluation Date of Evaluation: 06/02/17 Time of Evaluation: 11:40 - Subjective Subjective: Patient seen and examined at bedside. She reports that her breathing has improved and that she still has a productive cough but notes no hemoptysis. She reports a headache, but is being seen by Dr. Bhatia for suspected migraines. Assessment and Plan: 1. Chronic cough and SOb - 02 Sat 96% on 2L NC - contact Dr Barney for previous reports for her diagnosis - Continue Advair, Singulair - duoneb, ventolin Tx 2. Cryptogenic Organizing Pneumonia - CT Chest 05/30: heteogeneous bilateral multifocal ground-glass opacities with patchy areas of confluency at the bases - continue IV steroids 20mg Q8h Objective - Vital Signs/Intake and Output Vital Signs (last 24 hours): Temp Pulse Resp BP Pulse Ox 98.8 F 88 20 105/72 98 06/02/17 16:00 06/02/17 16:00 06/02/17 16:00 06/02/17 16:00 06/02/17 16:00 Intake and Output: 06/02/17 06/02/17 06:59 18:59 Intake Total 1000 740 Balance 1000 740 - Medications Medications: Current Medications Acetaminophen (Tylenol 325mg Tab) 650 mg PO TID PRN PRN Reason: Pain, moderate (4-7) Last Admin: 06/01/17 16:26 Dose: 650 mg Albuterol (Ventolin Hfa 90 Mcg/Actuation (8 G)) 2 puff INH RQ4 PRN PRN Reason: Shortness of Breath Albuterol/Ipratropium (Duoneb 3 Mg/0.5 Mg (3 Ml) Ud) 3 ml INH RQ6 [facility] Last Admin: 06/02/17 13:41 Dose: 3 ml Azithromycin (Zithromax) 500 mg PO Q24H [facility] Benzonatate (Tessalon Perles) 100 mg PO TID [facility] Last Admin: 06/02/17 14:42 Dose: 100 mg Insulin Human Regular (Novolin R) 0 unit SC ACHS [facility] PRN Reason: Protocol Last Admin: 06/02/17 12:32 Dose: Not Given Methylprednisolone (Solu-Medrol) 20 mg IVP Q8H [facility] Last Admin: 06/02/17 10:39 Dose: 20 mg Montelukast Sodium (Singulair) 10 mg PO HS [facility] Last Admin: 06/01/17 21:08 Dose: 10 mg Nortriptyline HCl (Pamelor) 10 mg PO HS [facility] Last Admin: 06/01/17 21:08 Dose: 10 mg Ondansetron HCl (Zofran Odt) 4 mg PO Q6H PRN PRN Reason: Nausea/Vomiting Pantoprazole Sodium (Protonix Ec Tab) 40 mg PO DAILY [facility] Last Admin: 06/02/17 10:29 Dose: 40 mg Polyethylene Glycol (Miralax) 17 gm PO DAILY [facility] Last Admin: 06/02/17 10:39 Dose: 17 gm - Labs Labs: 05/31/17 08:48 05/31/17 08:48
[2017-06-03] MEDS: Albuterol-Ipratrop 3 mg / 0.5 (3 ml) UD INH SCH ×3 (02:16→13:25)
[2017-06-03] MEDS: MethylPREDNISolone 40 mg Vial IVP SCH ×2 (02:40→11:34)
--- NOTE | 2017-06-03 08:14 | PN ---
DATE: SUBJECTIVE: The patient was seen and examined on the bedside, looking comfortable, still coughing with shortness of breath, seen by the production welder. No nausea, vomiting or diarrhea. No hematuria or hematochezia. Cleared by GI. Tolerating food very well. No fever, no chills. PHYSICAL EXAMINATION: VITAL SIGNS: Temperature 98.8, pulse 88, blood pressure 105/72, respiratory rate 20. HEENT: Head normocephalic, atraumatic. Eyes, PERRLA. Extraocular movements intact. Conjunctivae clear. Nose patent. Mucous membrane moist. NECK: Supple. No carotid bruit or JVD. No thyromegaly. CHEST: Bilateral wheezing. HEART: S1, S2 positive. ABDOMEN: Soft. Bowel sound present. No organomegaly. EXTREMITIES: No edema. No cyanosis. NEUROLOGIC: The patient is awake, alert. Moving all 4 extremities. No focal deficits. MEDICATIONS: Albuterol, heparin, MiraLax, NovoLog, nortriptyline, Protonix, Singulair, Solu-medrol, Tessalon, Tylenol, Ventolin, Zofran. LABORATORY DATA: White blood cells 6.8, hemoglobin 11.7, hematocrit 34, platelets 299, glucose 177, 181. ASSESSMENT AND PLAN: Caity Simpson is a 32 years old lady with headache, seen by the neurologist with MRI of the brain, unremarkable noncontrast enhanced MRI of the brain. Reviewed CAT scan of the chest. Circulation Assistant Dr. Marvin Najera is on the case. Chronic cough and shortness of breath, chronic obstructive pulmonary disease, oxygen saturation 96% on 2 L nasal cannula. Continue Advair, Singulair, DuoNeb and Ventolin p.r.n. Cryptogenic organizing pneumonia showed by CT of chest. Heterogenous bilateral multifocal ground glass appearance with patchy areas at the basis. Continue IV steroid as per Dr. Marvin Najera. The patient came with abdominal pain and nausea, so seen by Dr. Nicolas Diego. The patient tolerated regular food. GI signed off the case. Physical therapy and out of bed. We will follow. Alondra Lyles MD MTDD
[2017-06-03 08:21] VITALS: BP 107/71; PULSE 101; TEMP 98.1
[2017-06-03] MEDS: (Novolin R) Insulin Human Regular 100 units/ml vial SC SCH ×2 (08:49→12:05)
[2017-06-03 11:03] LABS: BASO % 0.3 % (0.0-2.0); EOS % 0.1 % (0.0-4.0); HEMOGLOBIN 12.5 g/dL (11.0-16.0); LYMPH # 1.9 K/uL (1.0-4.3); LYMPH % 19.8 % (20.0-40.0); MEAN CELL VOLUME 91.8 fL (81.0-99.0); MEAN CORPUSCULAR HEMOGLOBIN 31.5 pg (27.0-31.0); MEAN CORPUSCULAR HGB CONC 34.3 g/dL (33.0-37.0); MEAN PLATELET VOLUME 8.3 fL (7.2-11.7); MONO # 0.6 K/uL (0.0-0.8); MONO % 6.9 % (0.0-10.0); NEUT # 6.8 K/uL (1.8-7.0); NEUT % 72.9 % (50.0-75.0); RBC 3.97 Mil/uL (3.80-5.20); RED CELL DISTRIBUTION WIDTH 13.9 % (11.5-14.5); WHITE BLOOD COUNT 9.4 K/uL (4.8-10.8)
[2017-06-03] MEDS: Pantoprazole 40 mg EC Tab PO SCH (11:23)
[2017-06-03] MEDS: POLYETHYLENE GLYCOL 3350 17 GM/Dose PACKET PO SCH (11:23)
[2017-06-03 11:24] LABS: ALBUMIN 3.6 g/dL (3.5-5.0); ALT/SGPT 68 U/L (9-52); AST/SGOT 45 U/L (14-36); BLOOD UREA NITROGEN 16 mg/dL (7-17); CALCIUM 8.6 mg/dl (8.6-10.4); GFR AFRICAN-AMERICAN > 60; GFR NON-AFRICAN AMERICAN > 60
--- NOTE | 2017-06-03 14:51 | CP.PCM.PN ---
Subjective - Date & Time of Evaluation Date of Evaluation: 06/03/17 Time of Evaluation: 11:00 - Subjective Subjective: alert and orientedx3, no acute distress. Objective - Vital Signs/Intake and Output Vital Signs (last 24 hours): Temp Pulse Resp BP Pulse Ox 98.1 F 101 H 20 107/71 96 06/03/17 08:00 06/03/17 08:00 06/03/17 08:00 06/03/17 08:00 06/03/17 08:00 Intake and Output: 06/03/17 06/03/17 06:59 18:59 Intake Total 350 Balance 350 - Medications Medications: Current Medications Acetaminophen (Tylenol 325mg Tab) 650 mg PO TID PRN PRN Reason: Pain, moderate (4-7) Last Admin: 06/01/17 16:26 Dose: 650 mg Albuterol (Ventolin Hfa 90 Mcg/Actuation (8 G)) 2 puff INH RQ4 PRN PRN Reason: Shortness of Breath Albuterol/Ipratropium (Duoneb 3 Mg/0.5 Mg (3 Ml) Ud) 3 ml INH RQ6 [facility] Last Admin: 06/03/17 13:25 Dose: 3 ml Azithromycin (Zithromax) 500 mg PO Q24H [facility] Last Admin: 06/02/17 17:59 Dose: 500 mg Benzonatate (Tessalon Perles) 100 mg PO TID [facility] Last Admin: 06/03/17 13:56 Dose: 100 mg Heparin Sodium (Porcine) (Heparin) 5,000 units SC Q12 [facility] Last Admin: 06/03/17 11:23 Dose: 5,000 units Insulin Human Regular (Novolin R) 0 unit SC ACHS [facility] PRN Reason: Protocol Last Admin: 06/03/17 12:05 Dose: 2 unit Methylprednisolone (Solu-Medrol) 20 mg IVP Q8H [facility] Last Admin: 06/03/17 11:34 Dose: 20 mg Montelukast Sodium (Singulair) 10 mg PO HS [facility] Last Admin: 06/02/17 21:35 Dose: 10 mg Nortriptyline HCl (Pamelor) 10 mg PO HS [facility] Last Admin: 06/02/17 21:35 Dose: 10 mg Ondansetron HCl (Zofran Odt) 4 mg PO Q6H PRN PRN Reason: Nausea/Vomiting Pantoprazole Sodium (Protonix Ec Tab) 40 mg PO DAILY [facility] Last Admin: 06/03/17 11:23 Dose: 40 mg Polyethylene Glycol (Miralax) 17 gm PO DAILY [facility] Last Admin: 06/03/17 11:23 Dose: 17 gm - Labs Labs: 06/03/17 10:53 06/03/17 10:53 Assessment and Plan - Assessment and Plan (Free Text) Assessment: Patient is seen and examined. Alert, orientedx3, denies sob or chest pains. No wheezing at present. Cleared by DR Najera and DR Lyles, discharge plan for today. Advised to follow up with her PMD and pulmonary in 1 week. She has oxygen and nebulizer set up at home.
--- NOTE | 2017-06-03 17:48 | CP.PCM.PN ---
Subjective - Date & Time of Evaluation Date of Evaluation: 06/03/17 Time of Evaluation: 12:30 - Subjective Subjective: Patient seen and examined at bedside. She reports that her breathing has improved. Her cough has significantly improved, but she states she continues to have chest tightness when she coughs, and when she walks. Pt denies Fever, Chills, SOB, palpitations. Pt continue experiencing headaches daily. On exam, pt lungs sound clear bilaterally. Assessment and Plan: 1. Chronic cough and SOB 2/2 COPD - 02 Sat 96% on 2L NC - Continue Advair, Singulair - duoneb, ventolin Tx - tessalon perles 2. Cryptogenic Organizing Pneumonia - CT Chest 05/30: heteogeneous bilateral multifocal ground-glass opacities with patchy areas of confluency at the bases - continue IV steroids 20mg Q8h - c/w IV azithromycin - 05/30: IgG 1886, SARAH, Anti-mitochondrial Ab, Anti-smooth muscle all pending -Patient called her bell person Dr. Barney and informed him of her situation , she will schedule follow-up appointment for after her discharge Objective - Vital Signs/Intake and Output Vital Signs (last 24 hours): Temp Pulse Resp BP Pulse Ox 98.1 F 101 H 20 107/71 96 06/03/17 08:00 06/03/17 08:00 06/03/17 08:00 06/03/17 08:00 06/03/17 08:00 Intake and Output: 06/03/17 06/03/17 06:59 18:59 Intake Total 350 240 Balance 350 240 - Labs Labs: 06/03/17 10:53 06/03/17 10:53
[2017-06-05 18:26] VITALS: O2SAT 92
--- NOTE | 2017-06-10 08:36 | DS ---
CHIEF COMPLAINT: Chest pain, nausea, vomiting, and diarrhea. HISTORY OF PRESENT ILLNESS: Mrs. Caity Mast is a 32-year-old female who came to the emergency room complaining of persistent nausea and vomiting, which has been reported for past one month. The patient states that she has decreased p.o. intake, no appetite, complaining about persistent productive cough which has been present for at least past 2 months, noticed that she was using 2 different antibiotics. She is currently taking Bactrim provided by her PMD, but still not feeling better, has history of COPD, using 2 L oxygen at home. The patient has shortness of breath. Denies any fever or chills. We admitted the patient. The CAT scan of the chest and brain MRI seen by Dr. Marvin Najera, radiology scheduler, for COPD excerebration; Dr. Nicolas Diego, classifications officer cc/cm, for nausea and vomiting; and Dr. Patrick Bhatia is the neurologist. The patient improved, discharged with the family on 06/03/2017, and followup as outpatient. PAST MEDICAL HISTORY: Anemia, bronchitis, asthma, hypertension, and pneumonia. PAST SURGICAL HISTORY: section x3. HABITS: Tobacco, yes. Alcohol, no. Substance abuse, no. ALLERGIES: THE PATIENT IS ALLERGIC TO THE SEA FOOD. REVIEW OF SYSTEMS: The patient was seen and examined on bedside on 06/03/2017, he looks comfortable. Breathing is improved. Cough had significantly improved. Chest tightness improved. This only comes when she coughs. No fever. No chills. No shortness of breath. No palpitations, sometimes has headache. PHYSICAL EXAMINATION: VITAL SIGNS: Temperature 98.1, pulse 101, respiratory rate 20, and blood pressure 170/71. Pulse oximetry 96. HEENT: Head: Normocephalic, atraumatic. Eyes: PERRLA. Extraocular muscles intact. Conjunctivae clear. Nose: Patent. Mucous membrane moist. NECK: Supple. No carotid bruits. No JVD. No thyromegaly. CHEST: Bilaterally symmetrical. HEART: S1 and S2 positive. LUNGS: Clear to auscultation. ABDOMEN: Soft. Bowel sounds are present. No organomegaly. EXTREMITIES: No edema, no cyanosis. NEUROLOGICAL: The patient is awake and alert, moving all four extremities. No focal deficit. LABORATORY DATA: White blood cell is 9.4, hemoglobin 12.5, hematocrit 36.5, and platelets 311. Sodium 136, potassium 3.9, BUN 16, creatinine 0.6, and glucose 208. ASSESSMENT AND PLAN: Mrs. Caity Mast is a 32-year-old female, who came with chronic obstructive pulmonary disease exacerbation, has chronic cough and shortness of breath, oxygen saturation 96% on 2 L nasal cannula. We will continue Advair, Singulair, DuoNeb, Ventolin, and Tessalon Perles. Cryptogenic organizing pneumonia. CT of chest, 05/30/2017, shows heterogeneous bilateral multifocal ground-glass opacities with patchy areas of the confluence at the bases. We gave her steroids tapering doses and I will discharge her home with a tapering dose of steroid, got azithromycin. AMA, antimitochondrial antibodies, antismooth muscle all are pending. We will follow up as outpatient. Dr. Najera's group called the patient's radiology scheduler, Dr. Barney and informed him for her situation. She has been scheduled a followup appointment for fall after her discharge with her own radiology scheduler. Obesity, urged to lose weight. Discussion done with the patient. Urged to quit smoking. MRI of the brain was unremarkable. CT scan of the chest appreciated. The patient was seen by Dr. Valenzuela for abdomen pain, nausea, and vomiting. The patient tolerated regular food. G signed off. The patient was getting physical therapy. On 06/03/2017, the patient was improved and doing better. No acute distress. No shortness of breath. No wheezing. Cleared by [place] doctor, Dr. Reinaldo Verdugo and GI for discharge. Advised to followup her own PMD and radiology scheduler in one week. She has oxygen and nebulizer set up at home. Prescriptions written by nurse practitioner, Charanjit, she will be discharged home. Alondra Lyles MD
== END 2017-06-03 15:22 | disposition home or self-care (01) | DRG 541 ==
LOC: C.ER 09:14 → C.9E 13:29 → C.3T 14:39 → C.9E 15:33 → C.3T 19:00
PROVIDERS: ADMIT Internal Medicine; ATTEND Internal Medicine
DX: J84.116 Cryptogenic organizing pneumonia (principal); M62.82 Rhabdomyolysis; J44.0 Chronic obstructive pulmonary disease with (acute) lower respiratory infection; J44.1 Chronic obstructive pulmonary disease with (acute) exacerbation; E11.65 Type 2 diabetes mellitus with hyperglycemia; J98.11 Atelectasis; I10 Essential (primary) hypertension; G43.909 Migraine, unspecified, not intractable, without status migrainosus; E66.9 Obesity, unspecified; K21.9 Gastro-esophageal reflux disease without esophagitis; N28.9 Disorder of kidney and ureter, unspecified; F12.10 Cannabis abuse, uncomplicated; Z79.4 Long term (current) use of insulin; Z90.721 Acquired absence of ovaries, unilateral; Z87.01 Personal history of pneumonia (recurrent); Z68.42 Body mass index [BMI] 45.0-49.9, adult; Z87.891 Personal history of nicotine dependence; Z91.013 Allergy to seafood

== ENCOUNTER 2017-10-24 11:22 | Inpatient (IN) | payer MEDICAID ==
[2017-10-24 11:22] VITALS: BMI 43.2
--- NOTE | 2017-10-24 12:07 | C.PDOC ---
History Of Present Illness 32-year-old female, PMHx includes Cryptogenic Organizing Pneumonia, and (NID) Diabetes, presents to the emergency department with complaints of shortness of breath, and left sided chest pain going into her back. States she was on course of ABX for sinusitis, which she finished four days ago. Denies fever or chills. No abdominal pain, constipation or diarrhea, dark or bloody stool. No urinary complaints. 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) Surgical History: (x3) - [facility] Procedures EXCISION OF STOMACH, ENDO, DIAGN (02/06/16) FLUOROSCOPY OF LEFT HEART USING LOW OSMOLAR CONTRAST (02/06/16) FLUOROSCOPY OF MULT COR ART USING L OSM CONTRAST (02/06/16) MEASURE OF CARDIAC SAMPL & PRESSURE, L HEART, PERC APPROACH (02/06/16) Family History: States: No Known Family Hx - Social History Hx Tobacco Use: Yes Hx Alcohol Use: Yes (SOCIALLY) Hx Substance Use: No - Immunization History Hx Tetanus Toxoid Vaccination: Yes Hx Influenza Vaccination: Yes (Oct 2015) Hx Pneumococcal Vaccination: No Review Of Systems Constitutional: Negative for: Fever Cardiovascular: Positive for: Chest Pain. Negative for: Palpitations, Edema, Light Headedness Respiratory: Positive for: Shortness of Breath Gastrointestinal: Negative for: Nausea, Vomiting Musculoskeletal: Negative for: Back Pain Physical Exam - Physical Exam Appears: Non-toxic, No Acute Distress (morbidly obese) Skin: Normal Color, Warm, Dry, No Rash Head: Atraumatic, Normacephalic Eye(s): bilateral: Normal Inspection Nose: Normal Oral Mucosa: Moist Lips: Normal Appearing Neck: Normal ROM Chest: Symmetrical Cardiovascular: Rhythm Regular, No Murmur Respiratory: Normal Breath Sounds, No Decreased Breath Sounds, No Accessory Muscle Use Gastrointestinal/Abdominal: Soft, No Tenderness Extremity: Normal ROM Neurological/Psych: Oriented x3, Normal Speech ED Course And Treatment - Laboratory Results Result Diagrams: 10/24/17 12:56 10/24/17 12:56 ECG: Interpreted By Me, Viewed By Me ECG Rhythm: Sinus Tachycardia ECG Interpretation: No Acute Changes Interpretation Of ECG: Flipped T wave in lead 3 Rate From EC O2 Sat by Pulse Oximetry: 94 Medical Decision Making Medical Decision Makin yr old female 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 Given recent abx will seek imaging and labs. Low pretest wells, will seek D dimer rule out. Plan: * EKG * Bloodwork * Chest X-Ray * Tylenol * UA * Reassess and Disposition 1400 B/L PNA on XR, will consult for obs. No WBC elevation updated pt on results 1430 appreciate consult w/ Dr. Rainey: to admit to his service and start a florquinolone, gent, vanc. ordered. Endorsed to advertising vice president. Disposition - Disposition Disposition Time: 14:54 Condition: GOOD Forms: [employer] [employer] (German) - Clinical Impression Clinical Impression: Bilateral pneumonia - Scribe Statement The provider has reviewed the documentation as recorded by the Scribe (Bienvenido Torres) Provider Attestation: All medical record entries made by the Scribe were at my direction and personally dictated by me. I have reviewed the chart and agree that the record accurately reflects my personal performance of the history, physical exam, medical decision making, and the department course for this patient. I have also personally directed, reviewed, and agree with the discharge instructions and disposition.
--- NOTE | 2017-10-24 12:43 | RAD ---
HISTORY: cp COMPARISON: Chest x-ray performed 05/29/17 TECHNIQUE: Chest PA and lateral FINDINGS: Examination limited by habitus. LUNGS: Patchy bilateral lower lobe infiltrates. Interstitial prominence may reflect infection or edema. Please note that chest x-ray has limited sensitivity for the detection of pulmonary masses. PLEURA: No significant pleural effusion identified. No definite pneumothorax . CARDIOVASCULAR: Heart size appears within normal limits. OSSEOUS STRUCTURES: No acute osseous abnormality identified. VISUALIZED UPPER ABDOMEN: Unremarkable. OTHER FINDINGS: None. IMPRESSION: Patchy bilateral lower lobe infiltrates. Interstitial prominence may reflect infection or edema.
[2017-10-24 13:04] LABS: BASO # 0.1 K/uL (0.0-0.2); EOS # 0.1 K/uL (0.0-0.7); EOS % 0.9 % (0.0-4.0); HEMOGLOBIN 12.5 g/dL (11.0-16.0); LYMPH % 26.1 % (20.0-40.0); MEAN CORPUSCULAR HEMOGLOBIN 29.7 pg (27.0-31.0); MEAN CORPUSCULAR HGB CONC 33.8 g/dL (33.0-37.0); MEAN PLATELET VOLUME 7.9 fL (7.2-11.7); MONO # 0.4 K/uL (0.0-0.8); MONO % 5.1 % (0.0-10.0); NEUT # 5.1 K/uL (1.8-7.0); NEUT % 66.9 % (50.0-75.0); RBC 4.22 Mil/uL (3.80-5.20); RED CELL DISTRIBUTION WIDTH 14.4 % (11.5-14.5); WHITE BLOOD COUNT 7.6 K/uL (4.8-10.8)
[2017-10-24 13:27] LABS: ALBUMIN 4.3 g/dL (3.5-5.0); ALT/SGPT 84 U/L (9-52); AST/SGOT 65 U/L (14-36); BLOOD UREA NITROGEN 9 mg/dL (7-17); CALCIUM 9.2 mg/dl (8.6-10.4); GFR NON-AFRICAN AMERICAN > 60
[2017-10-24 13:39] LABS: SQUAMOUS EPITHIAL 3 /hpf (0-5); URINE BACTERIA OCC (<OCC); URINE BILIRUBIN NEGATIVE (NEGATIVE); URINE BLOOD NEGATIVE (NEGATIVE); URINE CLARITY Clear (Clear); URINE COLOR Yellow (YELLOW); URINE GLUCOSE (UA) NORMAL (Normal); URINE LEUKOCYTE ESTERASE NEG Leu/uL (Negative); URINE PROTEIN NEGATIVE (NEGATIVE); URINE UROBILINOGEN NORMAL mg/dL (0.2-1.0)
[2017-10-24 13:57] LABS: LIPASE 57 U/L (23-300)
[2017-10-24] MEDS ORDERED: Moxifloxacin IV 400mg/250ml NS 400 MG/250 ML BAG IVPB ONE ×2 (14:37→15:24)
[2017-10-24] MEDS ORDERED: Vancomycin 1 GM 1 GM/250 ML BAG IVPB ONE ×2 (15:23→15:24)
[2017-10-24 16:31] VITALS: RESP 20
--- NOTE | 2017-10-24 18:21 | CP.PCM.HP ---
History of Present Illness - History of Present Illness History of Present Illness: PGY 1 Medicine H&P for Dr. Rainey 32 yo F with PMHx of cryptogenic organizing pneumonia, diabetes and asthma who presents with 2 week history of worsening cough productive of clear and green phlegm, and 3 day history of chest pain radiating around to the right mid back and up the right side of her neck. Patient describes chest pain as intermittent sharp pinching after coughing episode. Patient was diagnosed with sinusitis by PMD last week and finished a course of antibiotics 4 days ago. Patient reports feeling nausea at baseline for the past year but has had multiple episodes of post-tussive vomitting for the past 2 days associated with shortness of breath, abdominal pain and an intermittent pinching chest pain. Patient reports she has been on 2L O2 at home since being diagnosed with cryptogenic organizing pneumonia 1.5 years ago but has felt worsening shortness of breath after coughing episodes in the past 2 weeks. Patient reports numbness in the fingers R >L and right eye twitching for the past month and subsequently was taken off Cyclophosphamide. Patient reports she has an appointment to be evaluated by neurology on 12/15/17. Patient reports her Prednisone has been changed multiple times and was recently lowered from 45 to 20 mg PO. Patient reports having chills, dizziness, weakness, decreased appetite, diaphoresis, intermittent chest pain, shortness of breath, cough, neck pain, vomiting, and constipation all over the past 2-3 days. Patient denies any fever, headache, palpitations, diarrhea. PMD: Dr. Blaze Torres Pulmonology: Dr. Johnson ([place]) PMHx: Cryptogenic organizing pneumonia (diagnosed 03/2016), COPD, diabetes, asthma Medications: Prednisone 20 mg PO daily, Protonix 40 mg po daily, Singulair 10 mg po daily, Metformin 500 mg po BID, Cyclophosphamide (d/c 2 weeks ago after 1 month course), Symbicort 1 aer BID, Ventolin 2 puff ih q4 PSHx: x3, Left ovary removal s/p multiple cysts, tubal ligation, right lung biopsy (03/2016), cardiac cath (03/2016) Family: Mother: asthma, DM, heart disease, Father: asthma Social: quit tobacco 2 years ago after 2-3 pack years, occasional marijuana to help with sleep, ETOH on holidays, lives with father, boyfriend and 3 children, 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 Allergies: NKDA Code status: Full Present on Admission - Present on Admission Any Indicators Present on Admission: No Review of Systems - Constitutional Constitutional: Chills, Fatigue - Cardiovascular Cardiovascular: Chest Pain - Respiratory Respiratory: Cough, Dyspnea on Exertion. absent: Wheezing - Gastrointestinal Gastrointestinal: Constipation. absent: Abdominal Pain, Bloating, Diarrhea - Genitourinary Genitourinary: absent: Difficulty Urinating, Nocturia - Musculoskeletal Musculoskeletal: Muscle Weakness, Myalgias, Numbness Additional comments: On R side. 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) - NEUROLOGICAL Hx Neurological Disorder: No - HEENT Hx HEENT Problems: Yes Other/Comment: wear glasses for astigmatism - RENAL Hx Chronic Kidney Disease: No - ENDOCRINE/METABOLIC Hx Endocrine Disorders: Yes Hx Diabetes Mellitus Type 2: Yes - HEMATOLOGICAL/ONCOLOGICAL Hx Anemia: Yes - INTEGUMENTARY Hx Dermatological Problems: No - MUSCULOSKELETAL/RHEUMATOLOGICAL Hx Musculoskeletal Disorders: No Hx Falls: No - GASTROINTESTINAL Hx Gastrointestinal Disorders: Yes Hx Diarrhea: Yes - GENITOURINARY/GYNECOLOGICAL Hx Sexually Transmitted Disorders: No - PSYCHIATRIC Hx Substance Use: No - SURGICAL HISTORY Hx Surgeries: Yes Hx Cardiac Catheterization: Yes Hx Section: Yes (x3) Other/Comment: left ovary removed 2006. Lung biposy (03/2015) - ANESTHESIA Hx Anesthesia: Yes Hx Anesthesia Reactions: No Hx Malignant Hyperthermia: No Meds Allergies/Adverse Reactions: Allergies Allergy/AdvReac Type Severity Reaction Status Date / Time seasonal Allergy Uncoded 10/24/17 11:39 Physical Exam - Head Exam Head Exam: ATRAUMATIC, NORMAL INSPECTION, NORMOCEPHALIC - Eye Exam Eye Exam: EOMI, Normal appearance - ENT Exam ENT Exam: Mucous Membranes Moist - Neck Exam Neck exam: Positive for: Normal Inspection - Respiratory Exam Respiratory Exam: Clear to Auscultation Bilateral, NORMAL BREATHING PATTERN. absent: Rales, Rhonchi, Wheezes - Cardiovascular Exam Cardiovascular Exam: +S1, +S2. absent: Irregular Rhythm, Systolic Murmur - GI/Abdominal Exam GI & Abdominal Exam: Normal Bowel Sounds, Soft. absent: Firm, Guarding - Extremities Exam Extremities exam: Positive for: full ROM. Negative for: tenderness Additional comments: trace pitting edema - Neurological Exam Neurological exam: Alert, CN II-XII Intact, Oriented x3 - Psychiatric Exam Psychiatric exam: Normal Affect, Normal Mood - Skin Skin Exam: Dry, Intact, Normal Color, Warm Results - Vital Signs Recent Vital Signs: Last Vital Signs Temp 98.2 F 10/24/17 16:29 Pulse 91 H 10/24/17 16:29 Resp 20 10/24/17 16:29 BP 106/77 10/24/17 16:29 Pulse Ox 100 10/24/17 16:29 - Labs Result Diagrams: 10/24/17 12:56 10/24/17 12:56 Labs: Laboratory Results - last 24 hr 10/24/17 10/24/17 10/24/17 12:56 12:56 12:56 WBC 7.6 RBC 4.22 Hgb 12.5 Hct 37.1 MCV 88.0 D MCH 29.7 MCHC 33.8 RDW 14.4 Plt Count 373 MPV 7.9 Neut % (Auto) 66.9 Lymph % (Auto) 26.1 [place] % (Auto) 5.1 Eos % (Auto) 0.9 Baso % (Auto) 1.0 Neut # (Auto) 5.1 Lymph # (Auto) 2.0 [place] # (Auto) 0.4 Eos # (Auto) 0.1 Baso # (Auto) 0.1 D-Dimer, Quantitative 234 Sodium 140 Potassium 3.8 Chloride 103 Carbon Dioxide 24 Anion Gap 17 BUN 9 Creatinine 0.6 L Est GFR ( Amer) > 60 Est GFR (Non-Af Amer) > 60 Random Glucose 94 Calcium 9.2 Magnesium 1.8 Total Bilirubin 0.6 AST 65 H D ALT 84 H D Alkaline Phosphatase 133 H D Troponin I < 0.0120 Total Protein 8.3 Albumin 4.3 Globulin 4.1 H Albumin/Globulin Ratio 1.0 Lipase 57 Urine Color Urine Clarity Urine pH Ur Specific [place] Urine Protein Urine Glucose (UA) Urine Ketones Urine Blood Urine Nitrate Urine Bilirubin Urine Urobilinogen Ur Leukocyte Esterase Urine WBC (Auto) Urine RBC (Auto) Ur Squamous Epith Cells Urine Bacteria 10/24/17 13:19 WBC RBC Hgb Hct MCV MCH MCHC RDW Plt Count MPV Neut % (Auto) Lymph % (Auto) [place] % (Auto) Eos % (Auto) Baso % (Auto) Neut # (Auto) Lymph # (Auto) [place] # (Auto) Eos # (Auto) Baso # (Auto) D-Dimer, Quantitative Sodium Potassium Chloride Carbon Dioxide Anion Gap BUN Creatinine Est GFR ( Amer) Est GFR (Non-Af Amer) Random Glucose Calcium Magnesium Total Bilirubin AST ALT Alkaline Phosphatase Troponin I Total Protein Albumin Globulin Albumin/Globulin Ratio Lipase Urine Color Yellow Urine Clarity Clear Urine pH 7.0 Ur Specific [place] 1.012 Urine Protein Negative Urine Glucose (UA) Normal Urine Ketones Negative Urine Blood Negative Urine Nitrate Negative Urine Bilirubin Negative Urine Urobilinogen Normal Ur Leukocyte Esterase Neg Urine WBC (Auto) < 1 Urine RBC (Auto) < 1 Ur Squamous Epith Cells 3 Urine Bacteria Occ H Assessment & Plan - Assessment and Plan (Free Text) Assessment: Assessment: 32 yo F with pmhx of cryptogenic organizing pneumonia, COPD, diabetes and asthma presents with 2 week history of worsening cough productive of clear and green phlegm, and 3 day history of chest pain radiating around to the right mid back and up the right side of her neck. 1) Shortness of breath - Cryptogenic organizing pneumonia vs CAP - Patient diagnosed with cryptogenic organizing pneumonia 03/2016 - Clear to auscultation - CXR (10/23) : Patchy bilateral lower lobe infiltrates. Interstitial prominence may reflect infection or edema - Afebrile, HR 90s- 100s, WBC 7.6 - Rocephin 1g daily - Prednisone 40 mg PO - 3L O2 nasal cannula - f/u blood cultures (10/24) - f/u inflenza a/b 2) Chest pain - Likely 2/2 to cough - Pain reproducible after coughing episodes - MICA negative x 1 - f/u MICA x2 (7pm) - ECG (10/23) : Sinus tachycardia at 103, nonspecific ST and T wave abnormalities (present in previous EKGs) - Cardiac cath 02/05/16: No coronary artery disease 3) History of diabetes - Hold home Metformin - ISS - Moderate scale ACHS - Accuchecks ACHS 4) Transaminitis - likely 2/2 to Cyclophosphomide use - AST/ALT : 65/84 (10/24) - monitor labs (CBC, CMP, Magnesium, Phophorus) 5) Constipation - Colace 100 mg PO bid 6) History of Asthma - Continue home medications: - Albuterol RQ4 PRN - Advair 1 puff Q12 - Montelukast 10 mg daily 5) History of gastritis - Protonix 40 mg po daily - no NSAID, including Excedrin 6) PPx - DVT ppx: SCD, VTE therapy contraindicated 2/2 previous GI bleed (2015) - GI ppx: Protonix 40 mg po daily - Heart healthy diet PGY1 Omar Proctor Will D/w Dr. Rainey
[2017-10-24] MEDS ORDERED: Albuterol 0.083% Inhal Sol (2.5 mg/3 mL) UD IH PRN (18:24)
[2017-10-24] MEDS ORDERED: Glucagon Recombinant 1 mg Inj IM PRN (19:21)
[2017-10-24] MEDS ORDERED: Dextrose 50% SYRINGE Inj (50 ml) IV PRN (19:21)
[2017-10-24] MEDS ORDERED: MethylPREDNISolone 40 mg Vial IVP STA ×2 (19:41→20:51)
[2017-10-24] MEDS ORDERED: Fluticasone-Salmeterol 250-50mcg Diskus INH SCH (20:00)
[2017-10-24 21:11] LABS: CK-MB 22.7 ng/mL (0.0-3.38)
[2017-10-24] MEDS: (Novolog) Insulin Aspart, Recombinant 100 u/ml 10 ml vial SC SCH (21:37)
[2017-10-25 06:39] LABS: BASO % 0.1 % (0.0-2.0); HEMOGLOBIN 12.2 g/dL (11.0-16.0); LYMPH % 16.6 % (20.0-40.0); MEAN CELL VOLUME 88.7 fL (81.0-99.0); MEAN CORPUSCULAR HEMOGLOBIN 30.3 pg (27.0-31.0); MEAN CORPUSCULAR HGB CONC 34.1 g/dL (33.0-37.0); MEAN PLATELET VOLUME 8.1 fL (7.2-11.7); MONO # 0.2 K/uL (0.0-0.8); MONO % 2.5 % (0.0-10.0); NEUT # 4.9 K/uL (1.8-7.0); NEUT % 80.8 % (50.0-75.0); RBC 4.02 Mil/uL (3.80-5.20); RED CELL DISTRIBUTION WIDTH 14.6 % (11.5-14.5); WHITE BLOOD COUNT 6.1 K/uL (4.8-10.8)
[2017-10-25 07:25] LABS: ALB/GLOB RATIO 1.1 (1.0-2.1); ALT/SGPT 68 U/L (9-52); AST/SGOT 51 U/L (14-36); BLOOD UREA NITROGEN 15 mg/dL (7-17); GFR NON-AFRICAN AMERICAN > 60
--- NOTE | 2017-10-25 08:24 | CP.PCM.PN ---
Subjective - Date & Time of Evaluation Date of Evaluation: 10/25/17 Time of Evaluation: 08:21 - Subjective Subjective: PGY1 - Medicine Progress Note for Dr. Rainey Patient was seen and evaluated at bedside this morning. Patient is without complaints today. No acute events occurred over night, per patient. Patient was able to tolerate diet without issue. Patient otherwise denies any diarrhea, dysuria, nausea, vomiting, fever, chest pain, shortness of breath, numbness and/ or tingling in lower extremities. Objective - Vital Signs/Intake and Output Vital Signs (last 24 hours): Temp Pulse Resp BP Pulse Ox 97.9 F 97 H 20 117/76 96 10/25/17 07:58 10/25/17 07:58 10/25/17 07:58 10/25/17 07:58 10/25/17 07:59 - Medications Medications: Current Medications Albuterol Sulfate (Albuterol 0.083% Inhal Rosette (2.5 Mg/3 Ml) Ud) 2.5 mg IH RQ4 PRN PRN Reason: Wheezing Dextrose (Dextrose 50% Inj) 0 ml IV STAT PRN; Protocol PRN Reason: Hypoglycemia Protocol Dextrose (Glutose 15) 0 gm PO ONCE PRN; Protocol PRN Reason: Hypoglycemia Protocol Docusate Sodium (Colace) 100 mg PO BID [facility]ER Glucagon (Glucagen Diagnostic Kit) 0 mg IM STAT PRN; Protocol PRN Reason: Hypoglycemia Protocol Dextrose (Dextrose 5% In Water 1000 Ml) 1,000 mls @ 0 mls/hr IV .Q0M PRN; Protocol; Per Protocol PRN Reason: Hypoglycemia Protocol Ceftriaxone Sodium 1 gm/ (Sodium Chloride) 100 mls @ 100 mls/hr IVPB DAILY [facility]ER PRN Reason: Protocol Insulin Aspart (Novolog) 0 unit SC ACHS [facility]YLER PRN Reason: Protocol Last Admin: 10/24/17 21:37 Dose: Not Given Ketorolac Tromethamine (Toradol) 15 mg IVP Q6 PRN PRN Reason: Pain, moderate (4-7) Ketorolac Tromethamine (Toradol) 30 mg IVP Q6 PRN PRN Reason: Pain, severe (8-10) Last Admin: 10/24/17 18:44 Dose: 30 mg Montelukast Sodium (Singulair) 10 mg PO DAILY TYLER Pantoprazole Sodium (Protonix Ec Tab) 40 mg PO DAILY [facility] Prednisone (Prednisone Tab) 40 mg PO DAILY [facility] Last Admin: 10/24/17 18:43 Dose: 40 mg Fluticasone/Salmeterol (Advair Diskus 250/50) 1 puff INH RQ12 [facility] - Labs Labs: 10/25/17 06:29 10/25/17 06:29 - Additional Findings Additional findings: - Head Exam Head Exam: ATRAUMATIC, NORMAL INSPECTION, NORMOCEPHALIC - Eye Exam Eye Exam: EOMI, Normal appearance - ENT Exam ENT Exam: Mucous Membranes Moist - Neck Exam Neck exam: Positive for: Normal Inspection - Respiratory Exam Respiratory Exam: Clear to Auscultation Bilateral, NORMAL BREATHING PATTERN. absent: Rales, Rhonchi, Wheezes - Cardiovascular Exam Cardiovascular Exam: +S1, +S2. absent: Irregular Rhythm, Systolic Murmur - GI/Abdominal Exam GI & Abdominal Exam: Normal Bowel Sounds, Soft. absent: Firm, Guarding - Extremities Exam Extremities exam: Positive for: full ROM. Negative for: tenderness Additional comments: trace pitting edema - Neurological Exam Neurological exam: Alert, CN II-XII Intact, Oriented x3 - Psychiatric Exam Psychiatric exam: Normal Affect, Normal Mood - Skin Skin Exam: Dry, Intact, Normal Color, Warm Assessment and Plan - Assessment and Plan (Free Text) Assessment: Assessment: 32 yo F with pmhx of cryptogenic organizing pneumonia, COPD, diabetes and asthma presents with 2 week history of worsening cough productive of clear and green phlegm, and 3 day history of chest pain radiating around to the right mid back and up the right side of her neck. 1) Shortness of breath - Cryptogenic organizing pneumonia vs CAP - Pulmonology consulted (Dr. Najera), Rec appreciated - Patient diagnosed with cryptogenic organizing pneumonia 03/2016 - Clear to auscultation - CXR (10/23) : Patchy bilateral lower lobe infiltrates. Interstitial prominence may reflect infection or edema - Afebrile - Rocephin 1g daily - Prednisone 40 mg PO - 3L O2 nasal cannula - f/u blood cultures (10/24) - f/u inflenza a/b 2) Chest pain - Likely 2/2 to cough - Pain reproducible after coughing episodes - MICA negative x 2 - ECG (10/23) : Sinus tachycardia at 103, nonspecific ST and T wave abnormalities (present in previous EKGs) - Cardiac cath 02/05/16: No coronary artery disease 3) History of diabetes - Hold home Metformin - ISS - Moderate scale ACHS - Accuchecks ACHS 4) Transaminitis - likely 2/2 to Cyclophosphomide use - AST/ALT trend - monitor labs (CBC, CMP, Magnesium, Phophorus) 5) Constipation - Colace 100 mg PO bid 6) History of Asthma - Continue home medications: - Albuterol RQ4 PRN - Advair 1 puff Q12 - Montelukast 10 mg daily 5) History of gastritis - Protonix 40 mg po daily - No NSAID, including Excedrin 6) PPx - DVT ppx: SCD, VTE therapy contraindicated 2/2 previous GI bleed (2015) - GI ppx: Protonix 40 mg po daily - Heart healthy diet PGY1 Kayla Watson Will D/w Dr. Rainey
[2017-10-25] MEDS: (Novolog) Insulin Aspart, Recombinant 100 u/ml 10 ml vial SC SCH ×4 (08:27→22:00)
[2017-10-25] MEDS: Pantoprazole 40 mg EC Tab PO SCH (10:21)
[2017-10-25 17:48] LABS: CK-MB 21.1 ng/mL (0.0-3.38)
[2017-10-26] MEDS: (Novolog) Insulin Aspart, Recombinant 100 u/ml 10 ml vial SC SCH ×4 (07:36→22:10)
--- NOTE | 2017-10-26 09:34 | CP.PCM.PN ---
Subjective - Date & Time of Evaluation Date of Evaluation: 10/26/17 Time of Evaluation: 09:33 - Subjective Subjective: PGY1 Medicine Progress Note for Dr. Rainey Patient seen and evaluated at bedside. Patient is tolerating diet with issue. Patient currently receiving fluids. No complaints overnight. No other current complaints. Patient denies chest pain, shortness of breath, palpitations, headache, dizziness, fever, chills, nausea, vomiting, diarrhea, numbness and/or tingling in extremities. Objective - Vital Signs/Intake and Output Vital Signs (last 24 hours): Temp Pulse Resp BP Pulse Ox 97.6 F 88 20 100/60 99 10/25/17 23:19 10/25/17 23:19 10/25/17 23:19 10/25/17 23:19 10/26/17 08:37 Intake and Output: 10/26/17 10/26/17 06:59 18:59 Intake Total 100 Balance 100 - Medications Medications: Current Medications Albuterol Sulfate (Albuterol 0.083% Inhal Rosette (2.5 Mg/3 Ml) Ud) 2.5 mg IH RQ4 PRN PRN Reason: Wheezing Dextrose (Dextrose 50% Inj) 0 ml IV STAT PRN; Protocol PRN Reason: Hypoglycemia Protocol Dextrose (Glutose 15) 0 gm PO ONCE PRN; Protocol PRN Reason: Hypoglycemia Protocol Docusate Sodium (Colace) 100 mg PO BID [facility] Last Admin: 10/25/17 17:44 Dose: 100 mg Glucagon (Glucagen Diagnostic Kit) 0 mg IM STAT PRN; Protocol PRN Reason: Hypoglycemia Protocol Dextrose (Dextrose 5% In Water 1000 Ml) 1,000 mls @ 0 mls/hr IV .Q0M PRN; Protocol; Per Protocol PRN Reason: Hypoglycemia Protocol Ceftriaxone Sodium 1 gm/ (Sodium Chloride) 100 mls @ 100 mls/hr IVPB DAILY [facility] PRN Reason: Protocol Last Admin: 10/25/17 10:20 Dose: 100 mls/hr Insulin Aspart (Novolog) 0 unit SC ACHS [facility] PRN Reason: Protocol Last Admin: 10/26/17 07:36 Dose: Not Given Ketorolac Tromethamine (Toradol) 15 mg IVP Q6 PRN PRN Reason: Pain, moderate (4-7) Last Admin: 10/25/17 18:20 Dose: 15 mg Ketorolac Tromethamine (Toradol) 30 mg IVP Q6 PRN PRN Reason: Pain, severe (8-10) Last Admin: 10/24/17 18:44 Dose: 30 mg Montelukast Sodium (Singulair) 10 mg PO DAILY [facility] Last Admin: 10/25/17 10:21 Dose: 10 mg Pantoprazole Sodium (Protonix Ec Tab) 40 mg PO DAILY [facility] Last Admin: 10/25/17 10:21 Dose: 40 mg Pneumococcal Polyvalent Vaccine (Pneumovax 23 Vaccine) 0.5 ml IM .ONCE ONE Stop: 10/26/17 10:01 Prednisone (Prednisone Tab) 40 mg PO DAILY [facility] Last Admin: 10/25/17 10:20 Dose: 40 mg Fluticasone/Salmeterol (Advair Diskus 250/50) 1 puff INH RQ12 [facility] - Labs Labs: 10/25/17 06:29 10/25/17 06:29 - Additional Findings Additional findings: - Head Exam Head Exam: ATRAUMATIC, NORMAL INSPECTION, NORMOCEPHALIC - Eye Exam Eye Exam: EOMI, Normal appearance - ENT Exam ENT Exam: Mucous Membranes Moist - Neck Exam Neck exam: Positive for: Normal Inspection - Respiratory Exam Respiratory Exam: Clear to Auscultation Bilateral, NORMAL BREATHING PATTERN. absent: Rales, Rhonchi, Wheezes - Cardiovascular Exam Cardiovascular Exam: +S1, +S2. absent: Irregular Rhythm, Systolic Murmur - GI/Abdominal Exam GI & Abdominal Exam: Normal Bowel Sounds, Soft. absent: Firm, Guarding - Extremities Exam Extremities exam: Positive for: full ROM. Negative for: tenderness Additional comments: trace pitting edema - Neurological Exam Neurological exam: Alert, CN II-XII Intact, Oriented x3 - Psychiatric Exam Psychiatric exam: Normal Affect, Normal Mood - Skin Skin Exam: Dry, Intact, Normal Color, Warm Assessment and Plan - Assessment and Plan (Free Text) Assessment: Assessment: 32 yo F with pmhx of cryptogenic organizing pneumonia, COPD, diabetes and asthma presents with 2 week history of worsening cough productive of clear and green phlegm, and 3 day history of chest pain radiating around to the right mid back and up the right side of her neck. 1) Shortness of breath - Cryptogenic organizing pneumonia vs CAP - Pulmonology consulted (Dr. Najera), Rec appreciated - Patient diagnosed with cryptogenic organizing pneumonia 03/2016 - Clear to auscultation - CXR (10/23) : Patchy bilateral lower lobe infiltrates. Interstitial prominence may reflect infection or edema - Afebrile - Rocephin 1g daily - Prednisone 40 mg PO - 3L O2 nasal cannula - f/u blood cultures (10/24) - f/u inflenza a/b 2) Chest pain - Likely 2/2 to cough - Pain reproducible after coughing episodes - MICA negative x 2 - ECG (10/23) : Sinus tachycardia at 103, nonspecific ST and T wave abnormalities (present in previous EKGs) - Cardiac cath 02/05/16: No coronary artery disease 3) History of diabetes - Hold home Metformin - ISS - Moderate scale ACHS - Accuchecks ACHS 4) Transaminitis - likely 2/2 to Cyclophosphomide use - AST/ALT trend - monitor labs (CBC, CMP, Magnesium, Phophorus) 5) Constipation - Colace 100 mg PO bid 6) History of Asthma - Continue home medications: - Albuterol RQ4 PRN - Advair 1 puff Q12 - Montelukast 10 mg daily - Pulmonology consulted, (Dr. Najera) recommendations appreciated 5) History of gastritis - Protonix 40 mg po daily - No NSAID, including Excedrin 6) PPx - DVT ppx: SCD, VTE therapy contraindicated 2/2 previous GI bleed (2015) - GI ppx: Protonix 40 mg po daily - Heart healthy diet PGY1 Kayla Watson Will D/w Dr. Rainey
[2017-10-26 09:37] LABS: ALB/GLOB RATIO 1.1 (1.0-2.1); ALBUMIN 3.6 g/dL (3.5-5.0); ALT/SGPT 54 U/L (9-52); AST/SGOT 31 U/L (14-36); BLOOD UREA NITROGEN 16 mg/dL (7-17); CALCIUM 8.5 mg/dl (8.6-10.4); GFR NON-AFRICAN AMERICAN > 60
[2017-10-26 09:44] LABS: BASO % 0.5 % (0.0-2.0); EOS # 0.1 K/uL (0.0-0.7); EOS % 1.6 % (0.0-4.0); LYMPH # 2.5 K/uL (1.0-4.3); MEAN CELL VOLUME 89.8 fL (81.0-99.0); MEAN CORPUSCULAR HEMOGLOBIN 30.6 pg (27.0-31.0); MEAN PLATELET VOLUME 8.1 fL (7.2-11.7); MONO # 0.5 K/uL (0.0-0.8); MONO % 5.6 % (0.0-10.0); NEUT # 5.5 K/uL (1.8-7.0); NEUT % 63.3 % (50.0-75.0); RBC 3.58 Mil/uL (3.80-5.20); RED CELL DISTRIBUTION WIDTH 14.2 % (11.5-14.5); WHITE BLOOD COUNT 8.6 K/uL (4.8-10.8)
[2017-10-26] MEDS ORDERED: Pneumococcal 23-Valent Vaccine IM ONE (10:00)
[2017-10-26] MEDS: Pantoprazole 40 mg EC Tab PO SCH (10:19)
[2017-10-27 05:50] LABS: BASO # 0.1 K/uL (0.0-0.2); BASO % 0.6 % (0.0-2.0); EOS # 0.1 K/uL (0.0-0.7); EOS % 1.5 % (0.0-4.0); HEMOGLOBIN 10.9 g/dL (11.0-16.0); LYMPH # 2.6 K/uL (1.0-4.3); LYMPH % 30.4 % (20.0-40.0); MEAN CELL VOLUME 88.7 fL (81.0-99.0); MEAN CORPUSCULAR HEMOGLOBIN 30.2 pg (27.0-31.0); MEAN CORPUSCULAR HGB CONC 34.1 g/dL (33.0-37.0); MEAN PLATELET VOLUME 7.8 fL (7.2-11.7); MONO # 0.6 K/uL (0.0-0.8); MONO % 6.9 % (0.0-10.0); NEUT # 5.1 K/uL (1.8-7.0); NEUT % 60.6 % (50.0-75.0); RBC 3.61 Mil/uL (3.80-5.20); RED CELL DISTRIBUTION WIDTH 14.3 % (11.5-14.5); WHITE BLOOD COUNT 8.5 K/uL (4.8-10.8)
[2017-10-27 06:09] LABS: ALB/GLOB RATIO 0.9 (1.0-2.1); ALBUMIN 3.2 g/dL (3.5-5.0); ALT/SGPT 55 U/L (9-52); AST/SGOT 31 U/L (14-36); BLOOD UREA NITROGEN 15 mg/dL (7-17); CALCIUM 8.2 mg/dl (8.6-10.4); GFR NON-AFRICAN AMERICAN > 60
[2017-10-27] MEDS: (Novolog) Insulin Aspart, Recombinant 100 u/ml 10 ml vial SC SCH ×4 (07:45→21:38)
[2017-10-27] MEDS: Pantoprazole 40 mg EC Tab PO SCH (09:55)
--- NOTE | 2017-10-27 10:43 | CP.PCM.PN ---
Subjective - Date & Time of Evaluation Date of Evaluation: 10/27/17 Time of Evaluation: 07:10 - Subjective Subjective: PGY 1 Medicine Progress Note for Dr. Rainey. Patient seen and examined at bedside. Patient lying in bed comfortably, in no acute distress. No overnight events reported. Patient states her breathing is much improved but still has slight chest pain upon coughing. Patient denies constipation, hematuria, dysrura, vision changes. Patient venous access infiltrated and unable to obtain new venous access 2/2 poor vasculature. Midline placed by SENIOR MARKETING SPECIALIST on 10/27/17 AM. Objective - Vital Signs/Intake and Output Vital Signs (last 24 hours): Temp Pulse Resp BP Pulse Ox 98.1 F 83 20 116/83 99 10/27/17 08:00 10/27/17 08:00 10/27/17 08:00 10/27/17 08:00 10/27/17 08:00 Intake and Output: 10/27/17 10/27/17 06:59 18:59 Intake Total 150 Balance 150 - Medications Medications: Current Medications Albuterol Sulfate (Albuterol 0.083% Inhal Rosette (2.5 Mg/3 Ml) Ud) 2.5 mg IH RQ4 PRN PRN Reason: Wheezing Dextrose (Dextrose 50% Inj) 0 ml IV STAT PRN; Protocol PRN Reason: Hypoglycemia Protocol Dextrose (Glutose 15) 0 gm PO ONCE PRN; Protocol PRN Reason: Hypoglycemia Protocol Docusate Sodium (Colace) 100 mg PO BID [facility] Last Admin: 10/27/17 09:55 Dose: 100 mg Glucagon (Glucagen Diagnostic Kit) 0 mg IM STAT PRN; Protocol PRN Reason: Hypoglycemia Protocol Dextrose (Dextrose 5% In Water 1000 Ml) 1,000 mls @ 0 mls/hr IV .Q0M PRN; Protocol; Per Protocol PRN Reason: Hypoglycemia Protocol Ceftriaxone Sodium 1 gm/ (Sodium Chloride) 100 mls @ 100 mls/hr IVPB DAILY [facility] PRN Reason: Protocol Last Admin: 10/27/17 09:55 Dose: 100 mls/hr Insulin Aspart (Novolog) 0 unit SC ACHS [facility] PRN Reason: Protocol Last Admin: 10/27/17 07:45 Dose: Not Given Ketorolac Tromethamine (Toradol) 15 mg IVP Q6 PRN PRN Reason: Pain, moderate (4-7) Last Admin: 10/26/17 22:25 Dose: 15 mg Ketorolac Tromethamine (Toradol) 30 mg IVP Q6 PRN PRN Reason: Pain, severe (8-10) Last Admin: 10/24/17 18:44 Dose: 30 mg Montelukast Sodium (Singulair) 10 mg PO DAILY [facility] Last Admin: 10/27/17 09:55 Dose: 10 mg Pantoprazole Sodium (Protonix Ec Tab) 40 mg PO DAILY [facility] Last Admin: 10/27/17 09:55 Dose: 40 mg Prednisone (Prednisone Tab) 40 mg PO DAILY [facility] Last Admin: 10/27/17 09:55 Dose: 40 mg Fluticasone/Salmeterol (Advair Diskus 250/50) 1 puff INH RQ12 [facility] - Labs Labs: 10/27/17 05:45 10/27/17 05:45 - Constitutional Appears: Well, Non-toxic, No Acute Distress - Head Exam Head Exam: ATRAUMATIC, NORMAL INSPECTION, NORMOCEPHALIC - Eye Exam Eye Exam: EOMI, Normal appearance Pupil Exam: NORMAL ACCOMODATION - ENT Exam ENT Exam: Mucous Membranes Moist - Respiratory Exam Respiratory Exam: Clear to Ausculation Bilateral, NORMAL BREATHING PATTERN. absent: Rales, Rhonchi, Wheezes - Cardiovascular Exam Cardiovascular Exam: +S1, +S2. absent: Irregular Rhythm, Murmur - GI/Abdominal Exam GI & Abdominal Exam: Soft, Normal Bowel Sounds. absent: Firm, Guarding, Rigid - Extremities Exam Extremities Exam: Full ROM, Normal Inspection. absent: Calf Tenderness, Pedal Edema Additional comments: R midline in place - Neurological Exam Neurological Exam: Alert, Awake, Oriented x3 - Psychiatric Exam Psychiatric exam: Normal Affect, Normal Mood. absent: Anxious, Depressed, Flat Affect - Skin Skin Exam: Dry, Intact, Normal Color, Warm Assessment and Plan - Assessment and Plan (Free Text) Assessment: Assessment: 32 yo F with pmhx of cryptogenic organizing pneumonia, COPD, diabetes and asthma presents with 2 week history of worsening cough productive of clear and green phlegm, and 3 day history of chest pain radiating around to the right mid back and up the right side of her neck. 1) Shortness of breath - Cryptogenic organizing pneumonia vs CAP - afebrile, CTA B/L - Patient diagnosed with cryptogenic organizing pneumonia 03/2016 - CXR (10/23) : Patchy bilateral lower lobe infiltrates. Interstitial prominence may reflect infection or edema - Pulmonology consulted (Dr. Najera), Rec appreciated - F/u Chest CT - Rocephin 1g daily - Methlyprednisone 40 mg PO - 3L O2 nasal cannula - blood cultures negative X 48 hrs - influenza a/b negative 2) Chest pain - Likely 2/2 to cough - Pain reproducible after coughing episodes - MICA negative x 2 - ECG (10/23) : Sinus tachycardia at 103, nonspecific ST and T wave abnormalities (present in previous EKGs) - Cardiac cath 02/05/16: No coronary artery disease 3) History of diabetes - Hold home Metformin - ISS - Moderate scale ACHS - Accuchecks ACHS 4) Transaminitis - likely 2/2 to Cyclophosphomide use - AST/ALT trend - monitor labs (CBC, CMP, Magnesium, Phophorus) 5) Constipation - Colace 100 mg PO bid 6) History of Asthma - Continue home medications: - Albuterol RQ4 PRN - Advair 1 puff Q12 - Montelukast 10 mg daily - Pulmonology consulted, (Dr. Najera) recommendations appreciated 5) History of gastritis - Protonix 40 mg po daily - No NSAID, including Excedrin 6) PPx - DVT ppx: SCD, VTE therapy contraindicated 2/2 previous GI bleed (2015) - GI ppx: Protonix 40 mg po daily - Heart healthy diet - Midline in place R mid arm D/w Dr. Redd Proctor PGY1
--- NOTE | 2017-10-27 14:28 | CP.PCM.CON ---
History of Present Illness - History of Present Illness History of Present Illness: reason for consultation: shortness of breath and chest pain on coughing 32-year-old female with history of cryptogenic organizing pneumonia, asthma who presented to emergency room complaining cough productive cough associated with chest pain and shortness of breath for the past. Patient was started on cyclophosphamide by R. brand strategy manager for organizing pneumonia and was discontinued for numbness and right eye twitching. Patient has been taking prednisone which was recently reduced to 20 mg PMHx: Cryptogenic organizing pneumonia (diagnosed 03/2016), COPD, diabetes, asthma Medications: Prednisone 20 mg PO daily, Protonix 40 mg po daily, Singulair 10 mg po daily, Metformin 500 mg po BID, Cyclophosphamide (d/c 2 weeks ago after 1 month course), Symbicort 1 aer BID, Ventolin 2 puff ih q4 PSHx: x3, Left ovary removal s/p multiple cysts, tubal ligation, right lung biopsy (03/2016), cardiac cath (03/2016) Family: Mother: asthma, DM, heart disease, Father: asthma Social: quit tobacco 2 years ago after 2-3 pack years, occasional marijuana to help with sleep, ETOH on holidays, lives with father, boyfriend and 3 children, 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) - NEUROLOGICAL Hx Neurological Disorder: No - HEENT Hx HEENT Problems: Yes Other/Comment: wear glasses for astigmatism - RENAL Hx Chronic Kidney Disease: No - ENDOCRINE/METABOLIC Hx Endocrine Disorders: Yes Hx Diabetes Mellitus Type 2: Yes - HEMATOLOGICAL/ONCOLOGICAL Hx Anemia: Yes - INTEGUMENTARY Hx Dermatological Problems: No - MUSCULOSKELETAL/RHEUMATOLOGICAL Hx Falls: No - GASTROINTESTINAL Hx Gastrointestinal Disorders: Yes Hx Diarrhea: Yes - GENITOURINARY/GYNECOLOGICAL Hx Sexually Transmitted Disorders: No - PSYCHIATRIC Hx Substance Use: (smoke marijuana) - SURGICAL HISTORY Hx Surgeries: Yes Hx Cardiac Catheterization: Yes Hx Section: Yes (x3) Other/Comment: left ovary removed 2006. Lung biposy (03/2015) - ANESTHESIA Hx Anesthesia: Yes Hx Anesthesia Reactions: No Hx Malignant Hyperthermia: No Meds Allergies/Adverse Reactions: Allergies Allergy/AdvReac Type Severity Reaction Status Date / Time seasonal Allergy Uncoded 10/24/17 11:39 - Medications Medications: Current Medications Albuterol Sulfate (Albuterol 0.083% Inhal Rosette (2.5 Mg/3 Ml) Ud) 2.5 mg IH RQ4 PRN PRN Reason: Wheezing Dextrose (Dextrose 50% Inj) 0 ml IV STAT PRN; Protocol PRN Reason: Hypoglycemia Protocol Dextrose (Glutose 15) 0 gm PO ONCE PRN; Protocol PRN Reason: Hypoglycemia Protocol Docusate Sodium (Colace) 100 mg PO BID [facility] Last Admin: 10/27/17 09:55 Dose: 100 mg Glucagon (Glucagen Diagnostic Kit) 0 mg IM STAT PRN; Protocol PRN Reason: Hypoglycemia Protocol Dextrose (Dextrose 5% In Water 1000 Ml) 1,000 mls @ 0 mls/hr IV .Q0M PRN; Protocol; Per Protocol PRN Reason: Hypoglycemia Protocol Ceftriaxone Sodium 1 gm/ (Sodium Chloride) 100 mls @ 100 mls/hr IVPB DAILY [facility] PRN Reason: Protocol Last Admin: 10/27/17 09:55 Dose: 100 mls/hr Insulin Aspart (Novolog) 0 unit SC ACHS [facility] PRN Reason: Protocol Last Admin: 10/27/17 12:30 Dose: Not Given Ketorolac Tromethamine (Toradol) 15 mg IVP Q6 PRN PRN Reason: Pain, moderate (4-7) Last Admin: 10/26/17 22:25 Dose: 15 mg Ketorolac Tromethamine (Toradol) 30 mg IVP Q6 PRN PRN Reason: Pain, severe (8-10) Last Admin: 10/24/17 18:44 Dose: 30 mg Montelukast Sodium (Singulair) 10 mg PO DAILY [facility] Last Admin: 10/27/17 09:55 Dose: 10 mg Pantoprazole Sodium (Protonix Ec Tab) 40 mg PO DAILY [facility] Last Admin: 10/27/17 09:55 Dose: 40 mg Prednisone (Prednisone Tab) 40 mg PO DAILY [facility] Last Admin: 10/27/17 09:55 Dose: 40 mg Fluticasone/Salmeterol (Advair Diskus 250/50) 1 puff INH RQ12 [facility] Physical Exam - Head Exam Head Exam: ATRAUMATIC, NORMOCEPHALIC - ENT Exam ENT Exam: Mucous Membranes Moist - Respiratory Exam Respiratory Exam: Clear to Auscultation Bilateral - Cardiovascular Exam Cardiovascular Exam: REGULAR RHYTHM Results - Vital Signs Recent Vital Signs: Last Vital Signs Temp 98.1 F 10/27/17 08:00 Pulse 83 10/27/17 08:00 Resp 20 10/27/17 08:00 BP 116/83 10/27/17 08:00 Pulse Ox 99 10/27/17 08:00 - Labs Result Diagrams: 10/27/17 05:45 10/27/17 05:45 Labs: Laboratory Results - last 24 hr 10/26/17 10/26/17 10/27/17 16:44 21:03 05:45 WBC 8.5 RBC 3.61 L Hgb 10.9 L Hct 32.0 L MCV 88.7 MCH 30.2 MCHC 34.1 RDW 14.3 Plt Count 313 MPV 7.8 Neut % (Auto) 60.6 Lymph % (Auto) 30.4 Mcnairy % (Auto) 6.9 Eos % (Auto) 1.5 Baso % (Auto) 0.6 Neut # (Auto) 5.1 Lymph # (Auto) 2.6 Mcnairy # (Auto) 0.6 Eos # (Auto) 0.1 Baso # (Auto) 0.1 Sodium Potassium Chloride Carbon Dioxide Anion Gap BUN Creatinine Est GFR ( Amer) Est GFR (Non-Af Amer) POC Glucose (mg/dL) 199 H 226 H Random Glucose Calcium Phosphorus Magnesium Total Bilirubin AST ALT Alkaline Phosphatase Total Protein Albumin Globulin Albumin/Globulin Ratio Urine HCG, Qual 10/27/17 10/27/17 10/27/17 05:45 07:29 11:08 WBC RBC Hgb Hct MCV MCH MCHC RDW Plt Count MPV Neut % (Auto) Lymph % (Auto) Mcnairy % (Auto) Eos % (Auto) Baso % (Auto) Neut # (Auto) Lymph # (Auto) Mcnairy # (Auto) Eos # (Auto) Baso # (Auto) Sodium 139 Potassium 3.8 Chloride 107 Carbon Dioxide 21 L Anion Gap 14 BUN 15 Creatinine 0.5 L Est GFR ( Amer) > 60 Est GFR (Non-Af Amer) > 60 POC Glucose (mg/dL) 86 111 H Random Glucose 108 H Calcium 8.2 L Phosphorus 3.7 Magnesium 1.8 Total Bilirubin 0.2 AST 31 ALT 55 H Alkaline Phosphatase 85 Total Protein 6.6 Albumin 3.2 L Globulin 3.4 Albumin/Globulin Ratio 0.9 L Urine HCG, Qual 10/27/17 14:08 WBC RBC Hgb Hct MCV MCH MCHC RDW Plt Count MPV Neut % (Auto) Lymph % (Auto) Mcnairy % (Auto) Eos % (Auto) Baso % (Auto) Neut # (Auto) Lymph # (Auto) Mcnairy # (Auto) Eos # (Auto) Baso # (Auto) Sodium Potassium Chloride Carbon Dioxide Anion Gap BUN Creatinine Est GFR ( Amer) Est GFR (Non-Af Amer) POC Glucose (mg/dL) Random Glucose Calcium Phosphorus Magnesium Total Bilirubin AST ALT Alkaline Phosphatase Total Protein Albumin Globulin Albumin/Globulin Ratio Urine HCG, Qual Negative Assessment & Plan (1) Cryptogenic organizing pneumonia Status: Acute Comment: IV steroids. Nebulizer treatment. CAT scan of chest (2) Bronchitis Status: Acute
--- NOTE | 2017-10-27 18:15 | CT ---
Date of service: 10/27/2017 PROCEDURE: CT Chest without contrast HISTORY: Shortness of breath. Hip area of cryptogenic pneumonia. COMPARISON: 05/30/2017. 01/24/2016 CT thorax TECHNIQUE: Contiguous axial images were obtained through the chest without intravenous contrast enhancement. Sagittal and coronal reconstructions were performed. Radiation dose (DLP): 570.60 mGy-cm. This CT exam was performed using one or more of the following dose reduction techniques: Automated exposure control, adjustment of the mA and/or kV according to patient size, and/or use of iterative reconstruction technique. FINDINGS: LUNGS: Interstitial and alveolar infiltrates again identified although there has been modest interval improvement. Underlying cystic/ bullous changes noted bilaterally. Findings related prior wedge resection right upper lobe. Adjacent postoperative changes noted right chest wall and axilla. MEDIASTINUM: Unremarkable thoracic aorta. No aneurysm. Normal sized heart. Main pulmonary artery unremarkable. No vascular congestion. Small mediastinal lymph nodes, hilar lymph node enlargement noted. The findings are likely infectious/ inflammatory in were seen previously. PLEURA: No pleural fluid. No pneumothorax. BONES: No fracture. No destructive lesion. UPPER ABDOMEN: Grossly unremarkable. OTHER FINDINGS: None. IMPRESSION: Modest interval improvement in infiltrates identified previously consistent with opportunistic/fungal infectious process. No new infiltrates. No pulmonary nodules or masses. Underlying bullous changes again identified. Stable adenopathy likely infectious/ inflammatory
--- NOTE | 2017-10-28 06:26 | CP.PCM.PN ---
Objective - Vital Signs/Intake and Output Vital Signs (last 24 hours): Temp Pulse Resp BP Pulse Ox 98.2 F 88 20 128/78 96 10/27/17 23:44 10/27/17 23:44 10/27/17 23:44 10/27/17 23:44 10/27/17 23:44 Intake and Output: 10/27/1718 18:59 06:59 Intake Total 650 Balance 650 - Medications Medications: Current Medications Albuterol Sulfate (Albuterol 0.083% Inhal Rosette (2.5 Mg/3 Ml) Ud) 2.5 mg IH RQ4 PRN PRN Reason: Wheezing Dextrose (Dextrose 50% Inj) 0 ml IV STAT PRN; Protocol PRN Reason: Hypoglycemia Protocol Dextrose (Glutose 15) 0 gm PO ONCE PRN; Protocol PRN Reason: Hypoglycemia Protocol Docusate Sodium (Colace) 100 mg PO BID [facility] Last Admin: 10/27/17 17:40 Dose: 100 mg Glucagon (Glucagen Diagnostic Kit) 0 mg IM STAT PRN; Protocol PRN Reason: Hypoglycemia Protocol Dextrose (Dextrose 5% In Water 1000 Ml) 1,000 mls @ 0 mls/hr IV .Q0M PRN; Protocol; Per Protocol PRN Reason: Hypoglycemia Protocol Ceftriaxone Sodium 1 gm/ (Sodium Chloride) 100 mls @ 100 mls/hr IVPB DAILY [facility] PRN Reason: Protocol Last Admin: 10/27/17 09:55 Dose: 100 mls/hr Insulin Aspart (Novolog) 0 unit SC ACHS [facility] PRN Reason: Protocol Last Admin: 10/27/17 21:38 Dose: Not Given Ketorolac Tromethamine (Toradol) 15 mg IVP Q6 PRN PRN Reason: Pain, moderate (4-7) Last Admin: 10/27/17 17:41 Dose: 15 mg Ketorolac Tromethamine (Toradol) 30 mg IVP Q6 PRN PRN Reason: Pain, severe (8-10) Last Admin: 10/24/17 18:44 Dose: 30 mg Methylprednisolone (Solu-Medrol) 40 mg IVP DAILY [facility] Montelukast Sodium (Singulair) 10 mg PO DAILY [facility] Last Admin: 10/27/17 09:55 Dose: 10 mg Pantoprazole Sodium (Protonix Ec Tab) 40 mg PO DAILY [facility] Last Admin: 10/27/17 09:55 Dose: 40 mg Fluticasone/Salmeterol (Advair Diskus 250/50) 1 puff INH RQ12 [facility] - Labs Labs: 10/27/17 05:45 10/27/17 05:45
[2017-10-28 07:14] LABS: BASO # 0.1 K/uL (0.0-0.2); BASO % 0.8 % (0.0-2.0); EOS # 0.2 K/uL (0.0-0.7); EOS % 2.2 % (0.0-4.0); HEMOGLOBIN 11.6 g/dL (11.0-16.0); LYMPH # 2.4 K/uL (1.0-4.3); LYMPH % 32.9 % (20.0-40.0); MEAN CELL VOLUME 88.4 fL (81.0-99.0); MEAN CORPUSCULAR HEMOGLOBIN 30.1 pg (27.0-31.0); MEAN CORPUSCULAR HGB CONC 34.1 g/dL (33.0-37.0); MEAN PLATELET VOLUME 8.1 fL (7.2-11.7); MONO # 0.6 K/uL (0.0-0.8); MONO % 7.9 % (0.0-10.0); NEUT # 4.1 K/uL (1.8-7.0); NEUT % 56.2 % (50.0-75.0); RBC 3.84 Mil/uL (3.80-5.20); RED CELL DISTRIBUTION WIDTH 14.7 % (11.5-14.5); WHITE BLOOD COUNT 7.3 K/uL (4.8-10.8)
[2017-10-28] MEDS: (Novolog) Insulin Aspart, Recombinant 100 u/ml 10 ml vial SC SCH ×2 (07:21→11:26)
[2017-10-28 07:38] LABS: ALBUMIN 3.4 g/dL (3.5-5.0); ALT/SGPT 56 U/L (9-52); AST/SGOT 40 U/L (14-36); BLOOD UREA NITROGEN 17 mg/dL (7-17); CALCIUM 8.5 mg/dl (8.6-10.4); GFR NON-AFRICAN AMERICAN > 60
[2017-10-28] MEDS ORDERED: MethylPREDNISolone 40 mg Vial IVP SCH (10:00)
[2017-10-28] MEDS: Pantoprazole 40 mg EC Tab PO SCH (10:55)
--- NOTE | 2017-10-28 13:25 | CP.PCM.PN ---
Objective - Vital Signs/Intake and Output Vital Signs (last 24 hours): Temp Pulse Resp BP Pulse Ox 97.5 F L 93 H 20 146/96 H 95 10/28/17 08:08 10/28/17 08:08 10/28/17 08:08 10/28/17 08:08 10/28/17 08:08 Intake and Output: 10/28/17 10/28/17 06:59 18:59 Intake Total 200 Balance 200 - Medications Medications: Current Medications Albuterol Sulfate (Albuterol 0.083% Inhal Rosette (2.5 Mg/3 Ml) Ud) 2.5 mg IH RQ4 PRN PRN Reason: Wheezing Dextrose (Dextrose 50% Inj) 0 ml IV STAT PRN; Protocol PRN Reason: Hypoglycemia Protocol Dextrose (Glutose 15) 0 gm PO ONCE PRN; Protocol PRN Reason: Hypoglycemia Protocol Docusate Sodium (Colace) 100 mg PO BID [facility] Last Admin: 10/28/17 10:56 Dose: 100 mg Glucagon (Glucagen Diagnostic Kit) 0 mg IM STAT PRN; Protocol PRN Reason: Hypoglycemia Protocol Dextrose (Dextrose 5% In Water 1000 Ml) 1,000 mls @ 0 mls/hr IV .Q0M PRN; Protocol; Per Protocol PRN Reason: Hypoglycemia Protocol Ceftriaxone Sodium 1 gm/ (Sodium Chloride) 100 mls @ 100 mls/hr IVPB DAILY [facility] PRN Reason: Protocol Last Admin: 10/28/17 10:56 Dose: 100 mls/hr Insulin Aspart (Novolog) 0 unit SC ACHS [facility] PRN Reason: Protocol Last Admin: 10/28/17 11:26 Dose: Not Given Ketorolac Tromethamine (Toradol) 15 mg IVP Q6 PRN PRN Reason: Pain, moderate (4-7) Last Admin: 10/27/17 17:41 Dose: 15 mg Ketorolac Tromethamine (Toradol) 30 mg IVP Q6 PRN PRN Reason: Pain, severe (8-10) Last Admin: 10/24/17 18:44 Dose: 30 mg Methylprednisolone (Solu-Medrol) 40 mg IVP DAILY [facility] Last Admin: 10/28/17 10:56 Dose: 40 mg Montelukast Sodium (Singulair) 10 mg PO DAILY [facility] Last Admin: 10/28/17 10:56 Dose: 10 mg Pantoprazole Sodium (Protonix Ec Tab) 40 mg PO DAILY [facility] Last Admin: 10/28/17 10:55 Dose: 40 mg Fluticasone/Salmeterol (Advair Diskus 250/50) 1 puff INH RQ12 [facility] - Labs Labs: 10/28/17 07:04 10/28/17 07:04
--- NOTE | 2017-10-28 15:51 | CP.PCM.DIS ---
Provider - Provider Date of Admission: 10/26/17 16:36 Attending physician: Frandy Rainey Jr, MD Primary care physician: Dr. Blaze Torres Consults: Dr. Johnson ([place]) Time Spent in preparation of Discharge (in minutes): 45 Diagnosis - Discharge Diagnosis (1) Cryptogenic organizing pneumonia Status: Acute Comment: increased steroids, patient feels better Hospital Course - Lab Results Lab Results: Micro Results 10/24/17 15:00 Blood-Venous Blood Culture - Preliminary NO GROWTH AFTER 3 DAYS 10/24/17 14:30 Blood-Venous Blood Culture - Preliminary NO GROWTH AFTER 3 DAYS Most Recent Lab Values WBC 7.3 K/uL (4.8-10.8) 10/28/17 07:04 RBC 3.84 Mil/uL (3.80-5.20) 10/28/17 07:04 Hgb 11.6 g/dL (11.0-16.0) 10/28/17 07:04 Hct 34.0 % (34.0-47.0) 10/28/17 07:04 MCV 88.4 fL (81.0-99.0) 10/28/17 07:04 MCH 30.1 pg (27.0-31.0) 10/28/17 07:04 MCHC 34.1 g/dL (33.0-37.0) 10/28/17 07:04 RDW 14.7 % (11.5-14.5) H 10/28/17 07:04 Plt Count 364 K/uL (130-400) 10/28/17 07:04 MPV 8.1 fL (7.2-11.7) 10/28/17 07:04 Neut % (Auto) 56.2 % (50.0-75.0) 10/28/17 07:04 Lymph % (Auto) 32.9 % (20.0-40.0) 10/28/17 07:04 [place] % (Auto) 7.9 % (0.0-10.0) 10/28/17 07:04 Eos % (Auto) 2.2 % (0.0-4.0) 10/28/17 07:04 Baso % (Auto) 0.8 % (0.0-2.0) 10/28/17 07:04 Neut # (Auto) 4.1 K/uL (1.8-7.0) 10/28/17 07:04 Lymph # (Auto) 2.4 K/uL (1.0-4.3) 10/28/17 07:04 [place] # (Auto) 0.6 K/uL (0.0-0.8) 10/28/17 07:04 Eos # (Auto) 0.2 K/uL (0.0-0.7) 10/28/17 07:04 Baso # (Auto) 0.1 K/uL (0.0-0.2) 10/28/17 07:04 D-Dimer, Quantitative 234 ng/mlDDU (0-243) 10/24/17 12:56 Sodium 139 mmol/L (132-148) 10/28/17 07:04 Potassium 4.0 mmol/L (3.6-5.2) 10/28/17 07:04 Chloride 108 mmol/L (98-107) H 10/28/17 07:04 Carbon Dioxide 21 mmol/L (22-30) L 10/28/17 07:04 Anion Gap 14 (10-20) 10/28/17 07:04 BUN 17 mg/dL (7-17) 10/28/17 07:04 Creatinine 0.5 mg/dL (0.7-1.2) L 10/28/17 07:04 Est GFR ( Amer) > 60 10/28/17 07:04 Est GFR (Non-Af Amer) > 60 10/28/17 07:04 POC Glucose (mg/dL) 132 mg/dL (65-110) H 10/28/17 11:20 Random Glucose 107 mg/dL (65-105) H 10/28/17 07:04 Calcium 8.5 mg/dl (8.6-10.4) L 10/28/17 07:04 Phosphorus 3.5 mg/dL (2.5-4.5) 10/28/17 07:04 Magnesium 1.8 mg/dL (1.6-2.3) 10/28/17 07:04 Total Bilirubin 0.2 mg/dL (0.2-1.3) 10/28/17 07:04 AST 40 U/L (14-36) H D 10/28/17 07:04 ALT 56 U/L (9-52) H 10/28/17 07:04 Alkaline Phosphatase 93 U/L (38-126) 10/28/17 07:04 Total Creatine Kinase 818 U/L (30-135) H 10/25/17 16:30 CK-MB (Mass) 21.1 ng/mL (0.0-3.38) H 10/25/17 16:30 Troponin I < 0.0120 ng/mL (0.00-0.120) 10/25/17 16:30 Total Protein 6.7 g/dL (6.3-8.3) 10/28/17 07:04 Albumin 3.4 g/dL (3.5-5.0) L 10/28/17 07:04 Globulin 3.3 gm/dL (2.2-3.9) 10/28/17 07:04 Albumin/Globulin Ratio 1.0 (1.0-2.1) 10/28/17 07:04 Lipase 57 U/L (23-300) 10/24/17 12:56 Urine Color Yellow (YELLOW) 10/24/17 13:19 Urine Clarity Clear (Clear) 10/24/17 13:19 Urine pH 7.0 (5.0-8.0) 10/24/17 13:19 Ur Specific [place] 1.012 (1.003-1.030) 10/24/17 13:19 Urine Protein Negative mg/dL (NEGATIVE) 10/24/17 13:19 Urine Glucose (UA) Normal mg/dL (Normal) 10/24/17 13:19 Urine Ketones Negative mg/dL (NEGATIVE) 10/24/17 13:19 Urine Blood Negative (NEGATIVE) 10/24/17 13:19 Urine Nitrate Negative (NEGATIVE) 10/24/17 13:19 Urine Bilirubin Negative (NEGATIVE) 10/24/17 13:19 Urine Urobilinogen Normal mg/dL (0.2-1.0) 10/24/17 13:19 Ur Leukocyte Esterase Neg Driss/uL (Negative) 10/24/17 13:19 Urine WBC (Auto) < 1 /hpf (0-5) 10/24/17 13:19 Urine RBC (Auto) < 1 /hpf (0-3) 10/24/17 13:19 Ur Squamous Epith Cells 3 /hpf (0-5) 10/24/17 13:19 Urine Bacteria Occ (<OCC) H 10/24/17 13:19 Urine HCG, Qual Negative (NEGATIVE) 10/27/17 14:08 Influenza Typ A,B (EIA) Negative for flu a/b (NEGATIVE) 10/24/17 22:41 - Hospital Course Hospital Course: 32 yo F with PMHx of cryptogenic organizing pneumonia, diabetes and asthma who presents with 2 week history of worsening cough productive of clear and green phlegm, and 3 day history of chest pain radiating around to the right mid back and up the right side of her neck. Patient describes chest pain as intermittent sharp pinching after coughing episode. Patient was diagnosed with sinusitis by PMD last week and finished a course of antibiotics 4 days ago. Patient reports feeling nausea at baseline for the past year but has had multiple episodes of post-tussive vomitting for the past 2 days associated with shortness of breath, abdominal pain and an intermittent pinching chest pain. Patient reports she has been on 2L O2 at home since being diagnosed with cryptogenic organizing pneumonia 1.5 years ago but has felt worsening shortness of breath after coughing episodes in the past 2 weeks. Patient reports numbness in the fingers R >L and right eye twitching for the past month and subsequently was taken off Cyclophosphamide. Patient reports she has an appointment to be evaluated by neurology on 12/15/17. Patient reports her Prednisone has been changed multiple times and was recently lowered from 45 to 20 mg PO. Patient reports having chills, dizziness, weakness, decreased appetite, diaphoresis, intermittent chest pain, shortness of breath, cough, neck pain, vomiting, and constipation all over the past 2-3 days. Patient denies any fever, headache, palpitations, diarrhea. During Hospital Course: Patient was started on solumedrol 40 mg (her previous dose), ceftriaxone empirically for possible pneumonia, along with her home medications. Additionally patient had a CT chest to check for worsening of condition. CT showed: Modest interval improvement in infiltrates identified previously consistent with opportunistic/fungal infectious process. No new infiltrates. No pulmonary nodules or masses. Underlying bullous changes again identified. Stable adenopathy likely infectious/ inflammatory. Patient improved with higher dose and felt much better. Blood cultures negative 72 hours, chronic medical conditions managed. Additionally patient given 1X fluconazole 2/ 2 to vaginal pruritus. Patient felt much better with increased steroid dose. Patient discharged with predniosone 40mg & Sulfamethoxazole/trimethoprim (for Pneumocystis jirovecii prophylaxis). Above is only a summary of patients care during in the hospital, see EMR for full details Below are the instructions provided to the patient upon discharge: Patient is stable for discharge per Dr. Rainey. 1) Patient should start taking the following medications: 1) Prednisone 40 mg daily 2) Sulfamethoxazole/trimethoprim (800mg-160mg) daily - Above medications should be continued/discontinued per primary/ crankshaft straightener team. 2) Patient should continue her home medications: 1) Pantoprazole 40mg daily 2) Metformin 500 mg PO twice daily 3) Insulin detemir 100 unit SC at night time 4) Adavair diskus once daily 5) Benzonatate PO three times daily 6) Ventolin HF 2 puffs six times a day 7) Montelukast 10 mg daily 8) Albuterol upto six times daily as needed 9) Symbicort twice a day 3) Patient should STOP the following current home medications: 1) Prednisone 20 mg one a day 4) Patient should follow up with her Superintendent Track, Dr. Johnson ([place]) in 1 to 2 weeks. 5) Patient should follow up with her Primary doctor, Dr. Blaze Torres in 1 to 2 weeks. 6) If any of the symptoms arise or worsen, please return to your nearest emergency facility. 7) Take care and be well. Discharge Exam - Head Exam Head Exam: ATRAUMATIC, NORMAL INSPECTION, NORMOCEPHALIC - Eye Exam Eye Exam: EOMI, Normal appearance - Respiratory Exam Respiratory Exam: Clear to PA & Lateral, UNREMARKABLE. absent: Rales, Rhonchi, Wheezes - Cardiovascular Exam Cardiovascular Exam: +S1, +S2. absent: Irregular Rhythm, Systolic Murmur - GI/Abdominal Exam GI & Abdominal Exam: Normal Bowel Sounds, Soft. absent: Distended, Firm, Guarding - Extremities Exam Extremities exam: normal inspection Additional comments: no calf tenderness no pedal edema midline removed, w/ tip intact upon removal, pressure applied, w/ dressing placed - Back Exam Back exam: absent: CVA tenderness (L), CVA tenderness (R) - Neurological Exam Neurological exam: Alert, Oriented x3 - Psychiatric Exam Psychiatric exam: Normal Affect, Normal Mood - Skin Skin Exam: Dry, Intact, Normal Color, Warm Discharge Plan - Discharge Medications Prescriptions: predniSONE [predniSONE Tab] 40 mg PO DAILY #30 tab Sulfamethoxazole/Trimethoprim [Bactrim DS 800 mg-160 mg] 1 tab PO DAILY #30 tab - Follow Up Plan Condition: GOOD Disposition: HOME/ ROUTINE Instructions: Pneumonia, Adult (DC) Additional Instructions: Patient is stable for discharge per Dr. Rainey. 1) Patient should start taking the following medications: 1) Prednisone 40 mg daily 2) Sulfamethoxazole/trimethoprim (800mg-160mg) daily - Above medications should be continued/discontinued per primary/ crankshaft straightener team. 2) Patient should continue her home medications: 1) Pantoprazole 40mg daily 2) Metformin 500 mg PO twice daily 3) Insulin detemir 100 unit SC at night time 4) Adavair diskus once daily 5) Benzonatate PO three times daily 6) Ventolin HF 2 puffs six times a day 7) Montelukast 10 mg daily 8) Albuterol upto six times daily as needed 9) Symbicort twice a day 3) Patient should STOP the following current home medications: 1) Prednisone 20 mg one a day 4) Patient should follow up with her Superintendent Track, Dr. Johnson ([place]) in 1 to 2 weeks. 5) Patient should follow up with her Primary doctor, Dr. Blaze Torres in 1 to 2 weeks. 6) If any of the symptoms arise or worsen, please return to your nearest emergency facility. 7) Take care and be well. Referrals: Frandy Rainey Jr., MD [Medical Doctor] -
[2017-10-28 15:56] VITALS: BP 128/84; PULSE 91; TEMP 98.1; O2SAT 97
--- NOTE | 2017-10-29 14:29 | CARD ---
APPROVED REPORT Date of service: 10/24/2017 EKG Measurement Heart [id number] <Conclusion> Sinus tachycardia Nonspecific ST and T wave abnormality Abnormal ECG
== END 2017-10-28 17:39 | disposition home or self-care (01) | DRG 92 ==
LOC: C.ER 11:22 → C.9E 14:41 → C.3T 14:56 → OBSVTOIN 10-26 16:36
PROVIDERS: ADMIT Internal Medicine; ATTEND Internal Medicine
DX: J84.116 Cryptogenic organizing pneumonia (principal); J44.0 Chronic obstructive pulmonary disease with (acute) lower respiratory infection; I10 Essential (primary) hypertension; E11.9 Type 2 diabetes mellitus without complications; K59.00 Constipation, unspecified; L29.9 Pruritus, unspecified; Z79.84 Long term (current) use of oral hypoglycemic drugs; Z87.01 Personal history of pneumonia (recurrent); Z87.891 Personal history of nicotine dependence; Z99.81 Dependence on supplemental oxygen; Z90.721 Acquired absence of ovaries, unilateral; Z98.891 History of uterine scar from previous surgery

== ENCOUNTER 2018-06-27 09:52 | Emergency (ER) | payer MEDICAID ==
[2018-06-27 09:52] VITALS: BMI 43.2
[2018-06-27 10:40] LABS: BASO # 0.1 K/uL (0.0-0.2); BASO % 0.9 % (0.0-2.0); EOS # 0.1 K/uL (0.0-0.7); EOS % 0.7 % (0.0-4.0); HEMOGLOBIN 11.6 g/dL (11.0-16.0); LYMPH # 3.4 K/uL (1.0-4.3); LYMPH % 41.5 % (20.0-40.0); MEAN CORPUSCULAR HEMOGLOBIN 29.4 pg (27.0-31.0); MEAN CORPUSCULAR HGB CONC 33.4 g/dL (33.0-37.0); MEAN PLATELET VOLUME 8.4 fL (7.2-11.7); MONO # 0.7 K/uL (0.0-0.8); MONO % 8.1 % (0.0-10.0); NEUT # 4.1 K/uL (1.8-7.0); NEUT % 48.8 % (50.0-75.0); NRBC % 0.2 % (0.0-2.0); RBC 3.94 Mil/uL (3.80-5.20); RED CELL DISTRIBUTION WIDTH 15.6 % (11.5-14.5); WHITE BLOOD COUNT 8.3 K/uL (4.8-10.8)
[2018-06-27 10:44] LABS: HCG,QUALITATIVE URINE NEGATIVE (NEGATIVE)
[2018-06-27 10:46] LABS: SQUAMOUS EPITHIAL 2 /hpf (0-5); URINE BACTERIA RARE (<OCC); URINE BILIRUBIN NEGATIVE (NEGATIVE); URINE BLOOD 1+ (NEGATIVE); URINE CLARITY Hazy (Clear); URINE COLOR Yellow (YELLOW); URINE GLUCOSE (UA) NORMAL (Normal); URINE LEUKOCYTE ESTERASE NEG Leu/uL (Negative); URINE PROTEIN 1+ mg/dL (NEGATIVE)
[2018-06-27 10:55] LABS: ALB/GLOB RATIO 1.3 (1.0-2.1); ALBUMIN 4.5 g/dL (3.5-5.0); ALT/SGPT 170 U/L (9-52); AST/SGOT 68 U/L (14-36); BLOOD UREA NITROGEN 12 mg/dL (7-17); CALCIUM 9.8 mg/dl (8.6-10.4); GFR NON-AFRICAN AMERICAN > 60; LIPASE 146 U/L (23-300)
--- NOTE | 2018-06-27 11:05 | C.PDOC ---
History Of Present Illness 33 year old female presents to the ED sent by PMD for further evaluation of worsening abdominal pain for the last 2 days. Pain is located in the right lower quadrant. Associated symptoms include nausea, hematuria and dysuria. Reports history of abdominal surgeries including left ovary oophorectomy and . Denies any vomiting, diarrhea, back pain or chest pain. Time Seen by Provider: 06/27/18 10:04 Chief Complaint (Nursing): Abdominal Pain History Per: Patient History/Exam Limitations: no limitations Onset/Duration Of Symptoms: Days Current Symptoms Are (Timing): Still Present Location Of Pain/Discomfort: RLQ Quality Of Discomfort: "Pain" Associated Symptoms: Nausea, Urinary Symptoms. denies: Fever, Chills, Vomiting, Diarrhea, Back Pain, Chest Pain Past Medical History Reviewed: Historical Data, Nursing Documentation, Vital Signs Vital Signs: Last Vital Signs Temp 97.6 F 06/27/18 09:56 Pulse 89 06/27/18 09:56 Resp 17 06/27/18 09:56 BP 118/84 06/27/18 09:56 Pulse Ox 96 06/27/18 09:56 Primary Care Provider: David Adorno - Medical History PMH: Anemia, Asthma, Bronchitis, Diabetes, HTN, Pneumonia (Cryptogenic Organizing Pna) Denies: Deep Vein Thrombosis, HIV, Chronic Kidney Disease, Sexually Tr ansmitted Disease Surgical History: (x3) Denies: Pacemaker - [facility] Procedures EXCISION OF STOMACH, ENDO, DIAGN (02/06/16) FLUOROSCOPY OF LEFT HEART USING LOW OSMOLAR CONTRAST (02/06/16) FLUOROSCOPY OF MULT COR ART USING L OSM CONTRAST (02/06/16) INSERT OF INFUSION DEV INTO R CEPHALIC VEIN, PERC APPROACH (10/26/17) INSERTION OF INFUSION DEV INTO R BRACH VEIN, PERC APPROACH (02/04/18) MEASURE OF CARDIAC SAMPL & PRESSURE, L HEART, PERC APPROACH (02/06/16) ULTRASONOGRAPHY OF RIGHT UPPER EXTREMITY VEINS, GUIDANCE (02/04/18) Family History: States: No Known Family Hx - Social History Hx Tobacco Use: Yes Hx Alcohol Use: Yes Hx Substance Use: No - Immunization History Hx Tetanus Toxoid Vaccination: No Hx Influenza Vaccination: Yes Hx Pneumococcal Vaccination: No Review Of Systems Except As Marked, All Systems Reviewed And Found Negative. Constitutional: Negative for: Fever, Chills Cardiovascular: Negative for: Chest Pain Respiratory: Negative for: Shortness of Breath Gastrointestinal: Positive for: Nausea, Abdominal Pain. Negative for: Vomiting, Diarrhea Genitourinary: Positive for: Dysuria, Hematuria Skin: Negative for: Rash Physical Exam - Physical Exam Appears: Non-toxic, No Acute Distress Skin: Warm, Dry, No Rash Head: Atraumatic, Normacephalic Eye(s): bilateral: Normal Inspection Nose: Normal Oral Mucosa: Moist Neck: Normal ROM, Supple Chest: Symmetrical Cardiovascular: Rhythm Regular Respiratory: Normal Breath Sounds, No Rales, No Rhonchi, No Wheezing Gastrointestinal/Abdominal: Soft, Tenderness (RLQ tenderness ), No Guarding, No Rebound, Other (obese) Back: Normal Inspection, No CVA Tenderness Extremity: Normal ROM, No Swelling Neurological/Psych: Oriented x3, Normal Speech, Normal Motor Gait: Steady ED Course And Treatment - Laboratory Results Result Diagrams: 06/27/18 10:35 06/27/18 10:35 Lab Results: Total Bilirubin 0.6 mg/dL (0.2-1.3) 06/27/18 10:35 AST 68 U/L (14-36) H D 06/27/18 10:35 ALT 170 U/L (9-52) H D 06/27/18 10:35 Alkaline Phosphatase 221 U/L (38-126) H D 06/27/18 10:35 Total Protein 8.0 g/dL (6.3-8.3) 06/27/18 10:35 Albumin 4.5 g/dL (3.5-5.0) 06/27/18 10:35 Globulin 3.5 gm/dL (2.2-3.9) 06/27/18 10:35 Albumin/Globulin Ratio 1.3 (1.0-2.1) 06/27/18 10:35 Lipase 146 U/L (23-300) 06/27/18 10:35 Urine Color Yellow (YELLOW) 06/27/18 10:35 Urine Clarity Hazy (Clear) 06/27/18 10:35 Urine pH 6.0 (5.0-8.0) 06/27/18 10:35 Ur Specific [place] 1.026 (1.003-1.030) 06/27/18 10:35 Urine Protein 1+ mg/dL (NEGATIVE) H 06/27/18 10:35 Urine Glucose (UA) Normal mg/dL (Normal) 06/27/18 10:35 Urine Ketones Negative mg/dL (NEGATIVE) 06/27/18 10:35 Urine Blood 1+ (NEGATIVE) H 06/27/18 10:35 Urine Nitrate Negative (NEGATIVE) 06/27/18 10:35 Urine Bilirubin Negative (NEGATIVE) 06/27/18 10:35 Urine Urobilinogen 2.0 mg/dL (0.2-1.0) H 06/27/18 10:35 Ur Leukocyte Esterase Neg Driss/uL (Negative) 06/27/18 10:35 Urine WBC (Auto) 1 /hpf (0-5) 06/27/18 10:35 Urine RBC (Auto) 20 /hpf (0-3) H 06/27/18 10:35 Ur Squamous Epith Cells 2 /hpf (0-5) 06/27/18 10:35 Urine Bacteria Rare (<OCC) 06/27/18 10:35 Urine HCG, Qual Negative (NEGATIVE) 06/27/18 10:35 Urine HCG, Qual Negative (NEGATIVE) 06/27/18 10:35 O2 Sat by Pulse Oximetry: 96 (RA) Pulse Ox Interpretation: Normal Medical Decision Making Medical Decision Making: Plan - Bloodwork - UA - HCG - CT abd/pel CT scan shows ovarian cyst. Ultrasounds ordered. Results were discussed with the patient. On re-exam, the patient reports improvement of symptoms, Lungs are CTA, heart is RRR, abdomen is soft, non-tender and tolerating PO well. Pt is ambulatory in the ED with steady gait. Follow up with the medical doctor within 1-2 days. Return if worsened. Disposition - Disposition Referrals: [facility] [Outside] [facility] [Outside] Disposition: HOME/ ROUTINE Disposition Time: 15:04 Condition: GOOD Additional Instructions: Follow up with the medical doctor within 1-2 days. Return if worsened. 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 - Scribe Statement The provider has reviewed the documentation as recorded by the Scribe Parris Garsia All medical record entries made by the Alyssa were at my direction and personally dictated by me. I have reviewed the chart and agree that the record accurately reflects my personal performance of the history, physical exam, medical decision making, and the department course for this patient. I have also personally directed, reviewed, and agree with the discharge instructions and disposition.
[2018-06-27] MEDS ORDERED: Iodixanol 320 MG/ML 100 ML BOTTLE IV ONE (11:44)
--- NOTE | 2018-06-27 12:49 | CT ---
Date of service: 06/27/2018 PROCEDURE: CT Abdomen and Pelvis with contrast HISTORY: RLQ abd pain COMPARISON: Abdominal ultrasound performed 05/30/17, CT chest without contrast performed 10/27/17 TECHNIQUE: Contrast dose: 100 mL Visipaque 320 IV Radiation dose: Total exam DLP = 1491.73 mGy-cm. This CT exam was performed using one or more of the following dose reduction techniques: Automated exposure control, adjustment of the mA and/or kV according to patient size, and/or use of iterative reconstruction technique. FINDINGS: LOWER THORAX: Bilateral interstitial ground-glass opacities re-identified. No visible pleural effusion or pneumothorax. Small right lower lobe calcified granuloma measures approximately 7 mm. LIVER: Hepatomegaly. Hypoattenuation of the liver compatible with hepatic steatosis. GALLBLADDER AND BILE DUCTS: Unremarkable. PANCREAS: Unremarkable. SPLEEN: Unremarkable. ADRENALS: Unremarkable. KIDNEYS AND URETERS: The kidneys enhance symmetrically. 4 mm proximal right ureteral calculus (series 3, image 62). No hydronephrosis. VASCULATURE: No aortic aneurysm. No atherosclerotic calcification or mural plaque present. BOWEL: Stomach is nondistended. Lack of oral contrast limits evaluation for bowel pathology. Bowel loops appear within normal limits of caliber without evidence of obstruction. APPENDIX: The appendix appears within normal limits of caliber. No secondary signs of acute appendicitis. PERITONEUM: No significant free fluid. No definite free air. LYMPH NODES: Scattered sub cm nonspecific mesenteric and retroperitoneal lymph nodes. BLADDER: Unremarkable. REPRODUCTIVE: Uterus is present. 4.5 cm probable right ovarian cyst. BONES: No acute osseous abnormality is detected. OTHER FINDINGS: Small fat containing umbilical hernia IMPRESSION: 4.5 cm probable right ovarian cyst. Recommend pelvic ultrasound for further evaluation . 4 mm proximal right ureteral calculus. No hydronephrosis. Hepatomegaly. Hepatic steatosis. Nonspecific scattered retroperitoneal/mesenteric lymph nodes. Bilateral interstitial ground-glass opacities re-identified. Additional incidental findings as above. Findings discussed with Lucy Jon on 06/27/18 at 12:44 p.m.
[2018-06-27 14:49] VITALS: BP 128/82; PULSE 85; RESP 20; TEMP 98.2
--- NOTE | 2018-06-27 14:49 | US ---
Date of service: 06/27/2018 HISTORY: RLQ abd pain r/o cyst vs torsion COMPARISON: CT of the abdomen and pelvis with IV contrast performed the same day. TECHNIQUE: Real-time transabdominal pelvic ultrasound was performed. In addition a transvaginal pelvic ultrasound was necessary to better depict pelvic anatomy. FINDINGS: UTERUS: Measures 8.5 x 3.9 x 4.9 cm. Anteverted. ENDOMETRIUM: Measures 1.1 cm in diameter. CERVIX: No cervical abnormality identified. RIGHT OVARY: Measures 6.1 x 5.9 x 4.6 cm. 3.8 x 4.7 x 4.2 cm heterogeneous ovarian lesion likely complex cyst. Blood flow is demonstrated. LEFT OVARY: Not visualized. FREE FLUID: Small pelvic free fluid. OTHER FINDINGS: None. IMPRESSION: 3.8 x 4.7 x 4.2 cm heterogeneous ovarian lesion likely complex cyst. Correlate clinically and recommend 6 week ultrasound follow-up. Enlarged right ovary. The left ovary is not visualized, per patient surgically resected. Small pelvic fluid.
[2018-06-27 15:06] VITALS: O2SAT 96
== END 2018-06-27 15:50 | disposition home or self-care (01) ==
LOC: C.ER 09:52
DX: N83.209 Unspecified ovarian cyst, unspecified side (principal); N20.0 Calculus of kidney
CPT/HCPCS: 74177; 76830; 76856; 80053; 81001; 83690; 84703; 85025; 96374; 99285; J1885; Q9967